=== PATIENT | female | born 1935 | race African-American/Black ===

== ENCOUNTER 2019-05-21 20:05 | Emergency (ER) | payer MEDICARE ==
[~2019-05-21] VITALS: Ht 165.1 cm; Wt 59.0 kg
[~2019-05-21 20:05] MED LIST: CARV3.1240 PO; CHOL20009 PO; CLOP75TA28 PO; DONE10TA17 PO; ESCI10TA; LEVO50TA7; MEMA10TA; NITROGLYCERIN; OMEPRAZOLE CAP 40MG; OXYBUTYNIN TAB 5MG; SIMV-8; TRAZ50TA2
[2019-05-21 21:10] LABS: Basophils # (auto) 0.1 uL; Basophils % (auto) 1.1 % (0.0-2.0); Eosinophils # (auto) 0.1 uL; Eosinophils % (auto) 2.5 % (0.0-7.0); Hematocrit 40.6 % (36.0-46.0); Hemoglobin 13.6 g/dL (12.2-16.2); Lymphocytes # (auto) 1.5 uL; Lymphocytes % (auto) 26.7 % (10.0-50.0); Mean Corpuscular Hemoglobin 32.3 pg (28.0-32.0); Mean Corpuscular Hgb Conc. 33.5 g/dL (32.0-36.0); Mean Corpuscular Volume 96.3 fL (80.0-100.0); Monocytes # (auto) 0.4 uL; Monocytes % (auto) 7.6 % (0.0-12.0); Neutrophils # (auto) 3.5 uL; Neutrophils % (auto) 62.1 % (37.0-80.0); Nucleated Red Blood Cells % 0.1 %; Platelet Count (auto) 197 10^3/uL (140-450); Red Blood Cells 4.21 10^6/uL (4.0-5.20); White Blood Cell 5.6 10^3/uL (4.4-10.8)
[2019-05-21 21:47] LABS: BUN/Creatinine Ratio 10.8; Calcium 8.3 mg/dL (8.5-10.1)
[2019-05-21 21:48] LABS: Albumin 3.3 g/dL (3.4-5.0); Bilirubin, Total 0.3 mg/dL (0.2-1.0); Total Protein 7.3 g/dL (6.4-8.2)
[2019-05-22 00:48] LABS: Urine Bacteria FEW /hpf (None Seen); Urine Blood Negative /uL (Negative); Urine Specific Gravity 1.003 (1.001-1.035); Urine WBC 29 /hpf (0 - 5)
[2019-05-22] MEDS ORDERED: ONDANSETRON HCL 4 MG/2 ML VIAL IV ONE (01:30)
[2019-05-22] MEDS ORDERED: MORPHINE SULF INJ 2 MG/ML SYRINGE 1ML IV ONE (01:30)
[2019-05-22 02:00] VITALS: BP 139/79
== END 2019-05-22 02:44 | disposition left against medical advice (07) ==
LOC: ER 20:08
DX: M25.562 Pain in left knee (principal); Z53.21 Procedure and treatment not carried out due to patient leaving prior to being seen by health care provider
CPT/HCPCS: 36415; 73562; 80053; 81001; 85025; 93005; 93971; 99281; J2270; J2405

== ENCOUNTER 2020-07-04 21:13 | Emergency (ER) | payer MEDICARE, MEDICAID ==
[~2020-07-04] VITALS: Ht 162.6 cm; Wt 49.9 kg
[2020-07-04 22:16] LABS: Basophils # (auto) 0 10 ^3/uL (0-0.2); Basophils % (auto) 0.5 % (0.0-2.0); Eosinophils # (auto) 0.1 10 ^3/uL (0-0.8); Hematocrit 40.9 % (36.0-46.0); Hemoglobin 13.8 g/dL (12.2-16.2); Lymphocytes # (auto) 1.7 10 ^3/uL (0.4-5.4); Lymphocytes % (auto) 28.3 % (10.0-50.0); Mean Corpuscular Hemoglobin 32.7 pg (28.0-32.0); Mean Corpuscular Hgb Conc. 33.8 g/dL (32.0-36.0); Mean Corpuscular Volume 96.9 fL (80.0-100.0); Monocytes # (auto) 0.5 10 ^3/uL (0-1.3); Monocytes % (auto) 8.9 % (0.0-12.0); Neutrophils # (auto) 3.7 10 ^3/uL (1.6-8.6); Neutrophils % (auto) 60.3 % (37.0-80.0); Nucleated Red Blood Cells % 0.1 %; Platelet Count (auto) 157 10^3/uL (140-450); Red Blood Cells 4.22 10^6/uL (4.0-5.20); Red Cell Distribution Width 14.4 % (11.8-14.3); White Blood Cell 6.1 10^3/uL (4.4-10.8)
[2020-07-04 22:33] LABS: Albumin 3.4 g/dL (3.4-5.0); Anion Gap 8 (5-15); Blood Urea Nitrogen 8 mg/dL (7-18); Calcium 8.5 mg/dL (8.5-10.1); Carbon Dioxide 26 mmol/L (21-32); Chloride 100 mmol/L (98-107); Glucose 81 mg/dL (74-106); Sodium 134 mmol/L (136-145)
[2020-07-04 22:35] LABS: Alanine Aminotransferase 27 U/L (13-56); Aspartate Aminotransferase 22 U/L (15-37); BUN/Creatinine Ratio 9.8; GFR African American 85 mL/min; GFR Non-African American 71 mL/min
[2020-07-04 22:39] LABS: Alkaline Phosphatase 57 U/L (45-117); Bilirubin, Total 0.6 mg/dL (0.2-1.0); Total Protein 6.6 g/dL (6.4-8.2)
[2020-07-04 22:46] LABS: Urine Bacteria FEW /hpf (None Seen); Urine Blood Negative /uL (Negative); Urine Specific Gravity 1.004 (1.001-1.035); Urine WBC 14 /hpf (0 - 5)
[2020-07-04] MEDS ORDERED: cefTRIAXone 1GM/50ML D5W 50 ML IV ONE (23:45)
[2020-07-04] MEDS ORDERED: MORPHINE SULF INJ 2 MG/ML SYRINGE 1ML IV ONE (23:45)
[2020-07-04] MEDS ORDERED: ONDANSETRON HCL 4 MG/2 ML VIAL IV ONE (23:45)
[2020-07-05] MEDS ORDERED: cefTRIAXone SOD 1,000 MG VL IM ONE (01:15)
[2020-07-05] MEDS ORDERED: HYDROcodone-ACET 5/325MG TAB PO ONE (01:15)
[2020-07-05] MEDS ORDERED: LIDOCAINE 2% (LOCAL ANESTH.) PF 5ml SDV IJ ONE (01:15)
[2020-07-05 01:26] VITALS: BP 163/73
== END 2020-07-05 03:34 | disposition home or self-care (01) ==
LOC: EDBD 21:13 → ER 21:15
DX: N39.0 Urinary tract infection, site not specified (principal); R53.1 Weakness; R41.82 Altered mental status, unspecified; F03.90 Unspecified dementia, unspecified severity, without behavioral disturbance, psychotic disturbance, mood disturbance, and anxiety; E86.0 Dehydration; I11.0 Hypertensive heart disease with heart failure; I50.9 Heart failure, unspecified; F32.9 Major depressive disorder, single episode, unspecified; E78.5 Hyperlipidemia, unspecified; I25.2 Old myocardial infarction; Z85.3 Personal history of malignant neoplasm of breast; Z85.118 Personal history of other malignant neoplasm of bronchus and lung; Z79.899 Other long term (current) drug therapy; Z86.73 Personal history of transient ischemic attack (TIA), and cerebral infarction without residual deficits; Z90.89 Acquired absence of other organs; Z95.0 Presence of cardiac pacemaker; Z98.890 Other specified postprocedural states
CPT/HCPCS: 36415; 70450; 80053; 80320; 81001; 84484; 85025; 93005; 96372; 99285; J0696; J2001; J2270; J2405

== ENCOUNTER 2020-10-05 18:53 | Inpatient (IN) | payer MEDICARE, MEDICAID ==
[~2020-10-05] VITALS: Ht 160 cm; Wt 63.1 kg
[~2020-10-05 18:53] MED LIST changes: -DONE10TA17 PO; +DONE10TA5 PO
[2020-10-05] MEDS ORDERED: HYDROcodone-ACET 5/325MG TAB PO ONE (20:00)
[2020-10-05] MEDS ORDERED: HYDROcodone-ACET 5/325MG TAB PO PRN (21:15)
[2020-10-05] MEDS ORDERED: ACETAMINOPHEN 325 MG TAB PO ONE (21:15)
[2020-10-05] MEDS ORDERED: MORPHINE SULFATE 4 MG/ML SYR/VIAL IV PRN ×2 (21:15→21:30)
[2020-10-05] MEDS ORDERED: CLOP75TA70 PO (22:30)
[2020-10-05 23:48] LABS: Basophils # (auto) 0.1 10 ^3/uL (0-0.2); Basophils % (auto) 0.6 % (0.0-2.0); Eosinophils # (auto) 0 10 ^3/uL (0-0.8); Eosinophils % (auto) 0.1 % (0.0-7.0); Hematocrit 40.6 % (36.0-46.0); Hemoglobin 14.1 g/dL (12.2-16.2); Lymphocytes # (auto) 0.8 10 ^3/uL (0.4-5.4); Lymphocytes % (auto) 9.2 % (10.0-50.0); Mean Corpuscular Hemoglobin 33.9 pg (28.0-32.0); Mean Corpuscular Hgb Conc. 34.7 g/dL (32.0-36.0); Mean Corpuscular Volume 97.9 fL (80.0-100.0); Monocytes # (auto) 0.3 10 ^3/uL (0-1.3); Monocytes % (auto) 3.3 % (0.0-12.0); Neutrophils # (auto) 7.5 10 ^3/uL (1.6-8.6); Neutrophils % (auto) 86.8 % (37.0-80.0); Nucleated Red Blood Cells % 0.1 %; Platelet Count (auto) 159 10^3/uL (140-450); Red Blood Cells 4.15 10^6/uL (4.0-5.20); White Blood Cell 8.7 10^3/uL (4.4-10.8)
[2020-10-06] MEDS ORDERED: ONDANSETRON HCL 4 MG/2 ML VIAL IV ONE
[2020-10-06 00:01] LABS: Urine Bacteria FEW /hpf (None Seen); Urine Blood Negative /uL (Negative); Urine Specific Gravity 1.012 (1.001-1.035); Urine WBC 4 /hpf (0 - 5)
[2020-10-06 00:01] LABS: INR 1.08 (0.9-1.15); Partial Thromboplastin Time 28.2 sec (23.0-31.2)
[2020-10-06 00:06] LABS: BUN/Creatinine Ratio 16.4; Calcium 8.3 mg/dL (8.5-10.1)
[2020-10-06] MEDS ORDERED: NITROGLYCERIN 0.4 MG SL TAB SL PRN (00:30)
[2020-10-06] MEDS ORDERED: MORPHINE SULF INJ 2 MG/ML SYRINGE 1ML IV PRN (00:30)
[2020-10-06] MEDS ORDERED: ACETAMINOPHEN 325 MG TAB PO PRN (00:30)
[2020-10-06] MEDS ORDERED: DOCUSATE SOD 100 MG CAP PO PRN (00:30)
[2020-10-06] MEDS: D5W/SOD CHL 0.45% 1,000 ML IV SCH ×2 (00:55→13:44)
[2020-10-06] MEDS: ONDANSETRON HCL 4 MG/2 ML VIAL IV PRN (05:15)
[2020-10-06] MEDS: MORPHINE SULFATE 4 MG/ML SYR/VIAL IV PRN (05:16)
[2020-10-06] MEDS: LEVOTHYROXINE SODIUM 50 MCG TAB PO SCH (06:31)
[2020-10-06] MEDS: cefTRIAXone 1GM/50ML D5W 50 ML IV SCH (08:02)
[2020-10-06] MEDS: ZINC SULFATE 220mg CAP or TAB PO SCH (08:02)
[2020-10-06] MEDS: FAMOTIDINE (10MG/ML) 2ML VL IV SCH (08:02)
[2020-10-06] MEDS: MULTIPLE VITAMIN TAB PO SCH (08:02)
[2020-10-06] MEDS: ASCORBIC ACID 500 MG TAB PO SCH ×2 (08:03→21:33)
[2020-10-06] MEDS: MEMANTINE HCL 5 MG TAB PO SCH (08:03)
[2020-10-06 08:22] LABS: Basophils # (auto) 0 10 ^3/uL (0-0.2); Basophils % (auto) 0.5 % (0.0-2.0); Eosinophils # (auto) 0.2 10 ^3/uL (0-0.8); Eosinophils % (auto) 2.2 % (0.0-7.0); Hematocrit 38.9 % (36.0-46.0); Hemoglobin 13.3 g/dL (12.2-16.2); Lymphocytes # (auto) 1.2 10 ^3/uL (0.4-5.4); Lymphocytes % (auto) 16.5 % (10.0-50.0); Mean Corpuscular Hemoglobin 33.5 pg (28.0-32.0); Mean Corpuscular Hgb Conc. 34.2 g/dL (32.0-36.0); Mean Corpuscular Volume 97.7 fL (80.0-100.0); Monocytes # (auto) 0.4 10 ^3/uL (0-1.3); Monocytes % (auto) 5.7 % (0.0-12.0); Neutrophils # (auto) 5.4 10 ^3/uL (1.6-8.6); Neutrophils % (auto) 75.1 % (37.0-80.0); Nucleated Red Blood Cells % 0.1 %; Platelet Count (auto) 155 10^3/uL (140-450); Red Blood Cells 3.98 10^6/uL (4.0-5.20); Red Cell Distribution Width 13.8 % (11.8-14.3); White Blood Cell 7.1 10^3/uL (4.4-10.8)
[2020-10-06 08:45] LABS: Potassium 3.9 mmol/L (3.5-5.1)
[2020-10-06 08:55] LABS: Albumin 3.1 g/dL (3.4-5.0); BUN/Creatinine Ratio 15.6; Calcium 7.8 mg/dL (8.5-10.1); Total Protein 6.3 g/dL (6.4-8.2)
[2020-10-06] MEDS ORDERED: ENOXAPARIN SOD 40 MG/0.4 ML SYRINGE SC SCH (10:00)
[2020-10-07] MEDS: D5W/SOD CHL 0.45% 1,000 ML IV SCH (03:10)
[2020-10-07] MEDS: hydrALAZINE HCL 20 MG/ML VL IV PRN (04:04)
[2020-10-07] MEDS: LEVOTHYROXINE SODIUM 50 MCG TAB PO SCH (06:29)
[2020-10-07] MEDS ORDERED: ceFAZolin 1GM/50ML 50 ML IV ONE (07:15)
[2020-10-07] MEDS ORDERED: SUCCINYLCHOLINE CHLORIDE 20 MG/ML 10ML VIAL IV ONE (07:33)
[2020-10-07] MEDS ORDERED: fentaNYL CITRATE 100 MCG/2 ML VL ONE (07:34)
[2020-10-07] MEDS ORDERED: ROCURONIUM 10MG/ML 10ML VIAL IV ONE (07:34)
[2020-10-07] MEDS ORDERED: PROPOFOL 10 MG/ML 20 ML IV ONE (07:36)
[2020-10-07] MEDS ORDERED: BUPIVACAINE 0.25% INJ 50ML VIAL ONE (08:11)
[2020-10-07] MEDS: FAMOTIDINE (10MG/ML) 2ML VL IV SCH (10:03)
[2020-10-07] MEDS: cefTRIAXone 1GM/50ML D5W 50 ML IV SCH (10:04)
[2020-10-07] MEDS: ENOXAPARIN SOD 40 MG/0.4 ML SYRINGE SC SCH (10:13)
[2020-10-07] MEDS: LACTATED RINGER'S 1,000 ML IV SCH ×2 (13:08→18:45)
[2020-10-07 13:19] VITALS: BP 145/81
[2020-10-07 13:37] LABS: Basophils # (auto) 0.1 10 ^3/uL (0-0.2); Basophils % (auto) 0.5 % (0.0-2.0); Eosinophils # (auto) 0.1 10 ^3/uL (0-0.8); Eosinophils % (auto) 0.5 % (0.0-7.0); Hemoglobin 14.1 g/dL (12.2-16.2); Lymphocytes % (auto) 10.5 % (10.0-50.0); Mean Corpuscular Hemoglobin 33.6 pg (28.0-32.0); Mean Corpuscular Hgb Conc. 34.3 g/dL (32.0-36.0); Mean Corpuscular Volume 97.9 fL (80.0-100.0); Monocytes # (auto) 0.6 10 ^3/uL (0-1.3); Monocytes % (auto) 6.4 % (0.0-12.0); Neutrophils # (auto) 8.2 10 ^3/uL (1.6-8.6); Neutrophils % (auto) 82.1 % (37.0-80.0); Nucleated Red Blood Cells % 0.1 %; Platelet Count (auto) 139 10^3/uL (140-450); Red Blood Cells 4.19 10^6/uL (4.0-5.20); White Blood Cell 9.9 10^3/uL (4.4-10.8)
[2020-10-07] MEDS: ceFAZolin 1GM/50ML 50 ML IV SCH ×2 (13:51→20:30)
[2020-10-07 13:54] LABS: Albumin 2.9 g/dL (3.4-5.0); Calcium 7.6 mg/dL (8.5-10.1); Potassium 3.6 mmol/L (3.5-5.1)
[2020-10-07 13:57] LABS: BUN/Creatinine Ratio 11.7; Bilirubin, Total 0.5 mg/dL (0.2-1.0); Total Protein 6.6 g/dL (6.4-8.2)
[2020-10-07] MEDS: SODIUM CHLOR 0.9% PF (SALINE LOCK) 10ML VIAL/SYR IV SCH ×2 (14:00→22:56)
[2020-10-07 16:00] VITALS: BP 143/95
[2020-10-07] MEDS: ZINC SULFATE 220mg CAP or TAB PO SCH (17:27)
[2020-10-07] MEDS: ASCORBIC ACID 500 MG TAB PO SCH ×2 (17:27→22:57)
[2020-10-07] MEDS: MEMANTINE HCL 5 MG TAB PO SCH (17:27)
[2020-10-07] MEDS: MULTIPLE VITAMIN TAB PO SCH (17:27)
[2020-10-07] MEDS: Ensure HIGH Protein Chocolate 8oz Bottle PO SCH (18:00)
[2020-10-07] MEDS: MORPHINE SULFATE 4 MG/ML SYR/VIAL IV PRN (20:33)
[2020-10-07] MEDS: ONDANSETRON HCL 4 MG/2 ML VIAL IV PRN (20:34)
[2020-10-07 21:47] VITALS: BP 127/62
[2020-10-08] MEDS: LACTATED RINGER'S 1,000 ML IV SCH (03:21)
[2020-10-08 05:26] VITALS: BP 144/83
[2020-10-08 05:47] LABS: Basophils # (auto) 0 10 ^3/uL (0-0.2); Basophils % (auto) 0.5 % (0.0-2.0); Eosinophils # (auto) 0.1 10 ^3/uL (0-0.8); Eosinophils % (auto) 1.5 % (0.0-7.0); Hematocrit 36.9 % (36.0-46.0); Hemoglobin 12.6 g/dL (12.2-16.2); Lymphocytes # (auto) 1.4 10 ^3/uL (0.4-5.4); Lymphocytes % (auto) 19.7 % (10.0-50.0); Mean Corpuscular Hemoglobin 33.4 pg (28.0-32.0); Mean Corpuscular Hgb Conc. 34.1 g/dL (32.0-36.0); Mean Corpuscular Volume 97.8 fL (80.0-100.0); Monocytes # (auto) 0.6 10 ^3/uL (0-1.3); Monocytes % (auto) 7.7 % (0.0-12.0); Neutrophils # (auto) 5.1 10 ^3/uL (1.6-8.6); Neutrophils % (auto) 70.6 % (37.0-80.0); Platelet Count (auto) 131 10^3/uL (140-450); Red Blood Cells 3.78 10^6/uL (4.0-5.20); Red Cell Distribution Width 13.7 % (11.8-14.3); White Blood Cell 7.2 10^3/uL (4.4-10.8)
[2020-10-08] MEDS: SODIUM CHLOR 0.9% PF (SALINE LOCK) 10ML VIAL/SYR IV SCH ×3 (05:52→21:04)
[2020-10-08] MEDS: LEVOTHYROXINE SODIUM 50 MCG TAB PO SCH (05:53)
[2020-10-08] MEDS: MORPHINE SULFATE 4 MG/ML SYR/VIAL IV PRN (05:54)
[2020-10-08] MEDS: ONDANSETRON HCL 4 MG/2 ML VIAL IV PRN (05:55)
[2020-10-08 06:02] LABS: Potassium 3.6 mmol/L (3.5-5.1)
[2020-10-08 06:18] LABS: Albumin 2.5 g/dL (3.4-5.0); BUN/Creatinine Ratio 11.1; Bilirubin, Total 0.6 mg/dL (0.2-1.0); Calcium 7.8 mg/dL (8.5-10.1); Total Protein 5.8 g/dL (6.4-8.2)
[2020-10-08 08:00] VITALS: BP 148/84
[2020-10-08] MEDS: cefTRIAXone 1GM/50ML D5W 50 ML IV SCH (09:35)
[2020-10-08] MEDS: ENOXAPARIN SOD 40 MG/0.4 ML SYRINGE SC SCH (09:36)
[2020-10-08] MEDS: FAMOTIDINE (10MG/ML) 2ML VL IV SCH (09:36)
[2020-10-08] MEDS: ASCORBIC ACID 500 MG TAB PO SCH ×2 (09:37→21:04)
[2020-10-08] MEDS: MULTIPLE VITAMIN TAB PO SCH (09:37)
[2020-10-08] MEDS: ZINC SULFATE 220mg CAP or TAB PO SCH (09:37)
[2020-10-08] MEDS: MEMANTINE HCL 5 MG TAB PO SCH (09:37)
[2020-10-08] MEDS: HYDROcodone-ACET 5/325MG TAB PO PRN ×2 (09:38→15:31)
[2020-10-08] MEDS: Ensure HIGH Protein Chocolate 8oz Bottle PO SCH ×3 (09:50→18:43)
[2020-10-08] MEDS: D5W/SOD CHLO 0.9% 1,000 ML IV SCH ×2 (09:50→23:13)
[2020-10-08] MEDS ORDERED: ENOXAPARIN SOD 40 MG/0.4 ML SYRINGE SC SCH (10:00)
[2020-10-08 16:00] VITALS: BP 131/67
[2020-10-08 22:00] VITALS: BP 159/80
[2020-10-08] MEDS: hydrALAZINE HCL 20 MG/ML VL IV PRN (23:14)
[2020-10-09] MEDS: MORPHINE SULFATE 4 MG/ML SYR/VIAL IV PRN ×2 (04:50→14:06)
[2020-10-09 05:00] VITALS: BP 146/88
[2020-10-09] MEDS: SODIUM CHLOR 0.9% PF (SALINE LOCK) 10ML VIAL/SYR IV SCH ×3 (05:49→22:15)
[2020-10-09] MEDS: LEVOTHYROXINE SODIUM 50 MCG TAB PO SCH (06:11)
[2020-10-09 06:12] LABS: Hematocrit 36.1 % (36.0-46.0); Hemoglobin 12.8 g/dL (12.2-16.2)
[2020-10-09 06:33] LABS: Calcium 7.8 mg/dL (8.5-10.1); Potassium 3.6 mmol/L (3.5-5.1)
[2020-10-09 06:35] LABS: BUN/Creatinine Ratio 18.5
[2020-10-09 08:00] VITALS: BP 147/80
[2020-10-09] MEDS: FAMOTIDINE (10MG/ML) 2ML VL IV SCH (09:25)
[2020-10-09] MEDS: ENOXAPARIN SOD 40 MG/0.4 ML SYRINGE SC SCH (09:25)
[2020-10-09] MEDS: ASCORBIC ACID 500 MG TAB PO SCH ×2 (09:26→22:15)
[2020-10-09] MEDS: cefTRIAXone 1GM/50ML D5W 50 ML IV SCH (09:26)
[2020-10-09] MEDS: ZINC SULFATE 220mg CAP or TAB PO SCH (09:26)
[2020-10-09] MEDS: MULTIPLE VITAMIN TAB PO SCH (09:26)
[2020-10-09] MEDS: MEMANTINE HCL 5 MG TAB PO SCH (09:26)
[2020-10-09] MEDS: Ensure HIGH Protein Chocolate 8oz Bottle PO SCH ×3 (09:26→18:49)
[2020-10-09] MEDS: D5W/SOD CHLO 0.9% 1,000 ML IV SCH (14:07)
[2020-10-09 22:00] VITALS: BP 178/99
[2020-10-09] MEDS: hydrALAZINE HCL 20 MG/ML VL IV PRN (22:15)
[2020-10-10] MEDS: D5W/SOD CHLO 0.9% 1,000 ML IV SCH ×2 (01:30→05:46)
[2020-10-10 05:00] VITALS: BP 158/90
[2020-10-10] MEDS: SODIUM CHLOR 0.9% PF (SALINE LOCK) 10ML VIAL/SYR IV SCH ×3 (05:37→21:20)
[2020-10-10] MEDS: hydrALAZINE HCL 20 MG/ML VL IV PRN (05:38)
[2020-10-10] MEDS: LEVOTHYROXINE SODIUM 50 MCG TAB PO SCH (06:01)
[2020-10-10 08:34] LABS: Basophils # (auto) 0 10 ^3/uL (0-0.2); Basophils % (auto) 0.6 % (0.0-2.0); Eosinophils # (auto) 0.1 10 ^3/uL (0-0.8); Eosinophils % (auto) 0.7 % (0.0-7.0); Hematocrit 38.1 % (36.0-46.0); Lymphocytes # (auto) 1.1 10 ^3/uL (0.4-5.4); Lymphocytes % (auto) 15.5 % (10.0-50.0); Mean Corpuscular Hgb Conc. 34.1 g/dL (32.0-36.0); Mean Corpuscular Volume 96.7 fL (80.0-100.0); Monocytes # (auto) 0.5 10 ^3/uL (0-1.3); Monocytes % (auto) 7.3 % (0.0-12.0); Neutrophils # (auto) 5.6 10 ^3/uL (1.6-8.6); Neutrophils % (auto) 75.9 % (37.0-80.0); Platelet Count (auto) 144 10^3/uL (140-450); Red Blood Cells 3.93 10^6/uL (4.0-5.20); Red Cell Distribution Width 13.9 % (11.8-14.3); White Blood Cell 7.4 10^3/uL (4.4-10.8)
[2020-10-10] MEDS: Ensure HIGH Protein Chocolate 8oz Bottle PO SCH ×3 (08:34→18:04)
[2020-10-10 08:48] LABS: BUN/Creatinine Ratio 12.3; Calcium 7.8 mg/dL (8.5-10.1); Potassium 3.5 mmol/L (3.5-5.1)
[2020-10-10 09:00] VITALS: BP 112/56
[2020-10-10] MEDS: cefTRIAXone 1GM/50ML D5W 50 ML IV SCH (09:13)
[2020-10-10] MEDS: MULTIPLE VITAMIN TAB PO SCH (09:14)
[2020-10-10] MEDS: ZINC SULFATE 220mg CAP or TAB PO SCH (09:14)
[2020-10-10] MEDS: MEMANTINE HCL 5 MG TAB PO SCH (09:14)
[2020-10-10] MEDS: FAMOTIDINE (10MG/ML) 2ML VL IV SCH (09:14)
[2020-10-10] MEDS: ASCORBIC ACID 500 MG TAB PO SCH ×2 (09:14→21:20)
[2020-10-10] MEDS: ENOXAPARIN SOD 40 MG/0.4 ML SYRINGE SC SCH (09:15)
[2020-10-10 16:00] VITALS: BP 103/71
[2020-10-10] MEDS ORDERED: METOPROLOL TARTRATE 1MG/1ML-5ML VIAL IV ONE (16:00)
[2020-10-10 22:00] VITALS: BP 125/73
[2020-10-11] MEDS: D5W/SOD CHLO 0.9% 1,000 ML IV SCH (04:10)
[2020-10-11 05:23] VITALS: BP 77/73
[2020-10-11] MEDS: LEVOTHYROXINE SODIUM 50 MCG TAB PO SCH (06:02)
[2020-10-11] MEDS: SODIUM CHLOR 0.9% PF (SALINE LOCK) 10ML VIAL/SYR IV SCH ×2 (06:02→14:26)
[2020-10-11 08:00] VITALS: BP 158/80
[2020-10-11] MEDS: cefTRIAXone 1GM/50ML D5W 50 ML IV SCH (08:38)
[2020-10-11] MEDS: FAMOTIDINE (10MG/ML) 2ML VL IV SCH (08:39)
[2020-10-11] MEDS: hydrALAZINE HCL 20 MG/ML VL IV PRN (08:39)
[2020-10-11] MEDS: ENOXAPARIN SOD 40 MG/0.4 ML SYRINGE SC SCH (08:40)
[2020-10-11] MEDS: MEMANTINE HCL 5 MG TAB PO SCH (08:40)
[2020-10-11] MEDS: ZINC SULFATE 220mg CAP or TAB PO SCH (08:40)
[2020-10-11] MEDS: ASCORBIC ACID 500 MG TAB PO SCH ×2 (08:41→21:17)
[2020-10-11] MEDS: MULTIPLE VITAMIN TAB PO SCH (08:41)
[2020-10-11] MEDS: Ensure HIGH Protein Chocolate 8oz Bottle PO SCH ×3 (09:00→18:03)
[2020-10-11 16:00] VITALS: BP 138/80
[2020-10-11 22:00] VITALS: BP 146/93
[2020-10-11] MEDS: HYDROcodone-ACET 5/325MG TAB PO PRN (23:12)
[2020-10-12] MEDS: SODIUM CHLOR 0.9% PF (SALINE LOCK) 10ML VIAL/SYR IV SCH ×3 (00:09→14:00)
[2020-10-12] MEDS: D5W/SOD CHLO 0.9% 1,000 ML IV SCH ×2 (00:15→07:17)
[2020-10-12 05:00] VITALS: BP 160/96
[2020-10-12] MEDS: LEVOTHYROXINE SODIUM 50 MCG TAB PO SCH (07:16)
[2020-10-12 08:00] VITALS: BP 150/84
[2020-10-12] MEDS: Ensure HIGH Protein Chocolate 8oz Bottle PO SCH ×3 (08:00→18:00)
[2020-10-12] MEDS: FAMOTIDINE (10MG/ML) 2ML VL IV SCH (09:30)
[2020-10-12] MEDS: MULTIPLE VITAMIN TAB PO SCH (09:30)
[2020-10-12] MEDS: MEMANTINE HCL 5 MG TAB PO SCH (09:30)
[2020-10-12] MEDS: ENOXAPARIN SOD 40 MG/0.4 ML SYRINGE SC SCH (09:30)
[2020-10-12] MEDS: cefTRIAXone 1GM/50ML D5W 50 ML IV SCH (09:30)
[2020-10-12] MEDS: ZINC SULFATE 220mg CAP or TAB PO SCH (09:30)
[2020-10-12] MEDS: ASCORBIC ACID 500 MG TAB PO SCH (09:30)
[2020-10-12 16:00] VITALS: BP 155/82
== END 2020-10-12 20:50 | disposition home health service (06) | DRG 481 ==
LOC: ER 18:53 → EDBD 18:53 → TELE 10-06 00:26 → TELE-CENTR 10-07 12:42
PROVIDERS: ADMIT Nurse Practitioner Family; ATTEND Family Medicine
PROC: 0QS734Z Reposition Left Upper Femur with Internal Fixation Device, Percutaneous Approach (ICD-10-PCS; principal; 2020-10-07 07:31)
DX: S72.012A Unspecified intracapsular fracture of left femur, initial encounter for closed fracture (principal); E44.0 Moderate protein-calorie malnutrition; N39.0 Urinary tract infection, site not specified; E87.1 Hypo-osmolality and hyponatremia; F03.90 Unspecified dementia, unspecified severity, without behavioral disturbance, psychotic disturbance, mood disturbance, and anxiety; E78.5 Hyperlipidemia, unspecified; M19.90 Unspecified osteoarthritis, unspecified site; E89.0 Postprocedural hypothyroidism; I44.7 Left bundle-branch block, unspecified; I25.10 Atherosclerotic heart disease of native coronary artery without angina pectoris; I11.0 Hypertensive heart disease with heart failure; Z20.822 Contact with and (suspected) exposure to COVID-19; W01.0XXA Fall on same level from slipping, tripping and stumbling without subsequent striking against object, initial encounter; Y92.89 Other specified places as the place of occurrence of the external cause; Y93.89 Activity, other specified; Z68.24 Body mass index [BMI] 24.0-24.9, adult; Y99.8 Other external cause status; Z86.73 Personal history of transient ischemic attack (TIA), and cerebral infarction without residual deficits; Z95.810 Presence of automatic (implantable) cardiac defibrillator
CPT/HCPCS: 36415; 51702; 70450; 71045; 72170; 72192; 73502; 73560; 76000; 80048; 80053; 81001; 84443; 85014; 85018; 85025; 85610; 85730; 86850; 86900; 86901; 87086; 87426; 93005; 93306; A4565; G0378; J0330; J0690; J0696; J2405; J2704; J3490; J7042

== ENCOUNTER 2021-03-10 08:21 | Inpatient (IN) | payer MEDICARE, MEDICAID ==
[~2021-03-10] VITALS: Ht 165.1 cm; Wt 55.5 kg
[~2021-03-10 08:21] MED LIST changes: +CLOP75TA70 PO
[2021-03-10] MEDS ORDERED: SODIUM CHLORIDE 0.9% 500 ML IVB ONE (09:45)
[2021-03-10] MEDS ORDERED: SODIUM CHLORIDE 0.9% 1,000 ML IV ONE ×2 (09:45→10:45)
[2021-03-10] MEDS ORDERED: ONDANSETRON HCL 4 MG/2 ML VIAL IV ONE (10:45)
[2021-03-10] MEDS ORDERED: MORPHINE SULFATE 4 MG/ML SYR/VIAL IV ONE (10:45)
[2021-03-10 11:30] LABS: Basophils # (auto) 0 10 ^3/uL (0-0.2); Basophils % (auto) 0.5 % (0.0-2.0); Eosinophils # (auto) 0 10 ^3/uL (0-0.8); Eosinophils % (auto) 0.1 % (0.0-7.0); Hematocrit 39.5 % (36.0-46.0); Hemoglobin 13.5 g/dL (12.2-16.2); Lymphocytes # (auto) 0.9 10 ^3/uL (0.4-5.4); Lymphocytes % (auto) 12.1 % (10.0-50.0); Mean Corpuscular Hemoglobin 31.9 pg (28.0-32.0); Mean Corpuscular Hgb Conc. 34.2 g/dL (32.0-36.0); Mean Corpuscular Volume 93.3 fL (80.0-100.0); Monocytes # (auto) 0.3 10 ^3/uL (0-1.3); Monocytes % (auto) 3.9 % (0.0-12.0); Neutrophils % (auto) 83.4 % (37.0-80.0); Red Blood Cells 4.23 10^6/uL (4.0-5.20); Red Cell Distribution Width 14.3 % (11.8-14.3); White Blood Cell 7.2 10^3/uL (4.4-10.8)
[2021-03-10 11:46] LABS: Albumin 3.4 g/dL (3.4-5.0); Anion Gap 5 (5-15); Blood Urea Nitrogen 12 mg/dL (7-18); Calcium 8.5 mg/dL (8.5-10.1); Carbon Dioxide 26 mmol/L (21-32); Chloride 108 mmol/L (98-107); Glucose 100 mg/dL (74-106); Lipase 129 U/L (73-393); Magnesium 2.1 mg/dL (1.6-2.6); Potassium 4.2 mmol/L (3.5-5.1); Sodium 139 mmol/L (136-145)
[2021-03-10 11:53] LABS: Alanine Aminotransferase 20 U/L (13-56); Alkaline Phosphatase 58 U/L (45-117); Aspartate Aminotransferase 18 U/L (15-37); BUN/Creatinine Ratio 15.6; Bilirubin, Total 0.5 mg/dL (0.2-1.0); GFR African American 92 mL/min; GFR Non-African American 76 mL/min; Total Protein 6.8 g/dL (6.4-8.2)
[2021-03-10 12:52] LABS: Urine Bacteria FEW /hpf (None Seen); Urine Blood Negative /uL (Negative); Urine Specific Gravity 1.019 (1.001-1.035); Urine WBC 5 /hpf (0 - 5)
[2021-03-10] MEDS ORDERED: GASTROGRAFIN 120 ML SOL ONE (13:38)
[2021-03-10] MEDS ORDERED: ACETAMINOPHEN 500 MG TAB PO PRN (15:30)
[2021-03-10] MEDS ORDERED: MORPHINE SULFATE INJECTION 2 MG/ML SYRG IV PRN (15:30)
[2021-03-10] MEDS ORDERED: cefTRIAXone 1GM/50ML D5W 50 ML IV ONE (15:30)
[2021-03-10] MEDS ORDERED: NITROGLYCERIN 0.4 MG SL TAB SL PRN (15:30)
[2021-03-10] MEDS ORDERED: ONDANSETRON HCL 4 MG/2 ML VIAL IV PRN (15:30)
[2021-03-10] MEDS: SODIUM CHLORIDE 0.9% 1,000 ML IV SCH (16:16)
[2021-03-10] MEDS: FAMOTIDINE (10MG/ML) 2ML VL IV SCH (16:44)
[2021-03-10 22:00] VITALS: BP 155/79
[2021-03-11] MEDS: SODIUM CHLORIDE 0.9% 1,000 ML IV SCH ×3 (01:30→23:44)
[2021-03-11 05:00] VITALS: BP 134/74
[2021-03-11 08:51] VITALS: BP 151/75
[2021-03-11] MEDS: FAMOTIDINE (10MG/ML) 2ML VL IV SCH (08:58)
[2021-03-11] MEDS: ENOXAPARIN SOD 40 MG/0.4 ML SYRINGE SC SCH (08:58)
[2021-03-11] MEDS: cefTRIAXone 1GM/50ML D5W 50 ML IV SCH (08:58)
[2021-03-11 13:05] VITALS: BP 165/76
[2021-03-11 16:50] VITALS: BP 143/84
[2021-03-11 22:00] VITALS: BP 127/67
[2021-03-12 05:00] VITALS: BP 141/92
[2021-03-12 09:00] VITALS: BP 150/73
[2021-03-12] MEDS: FAMOTIDINE (10MG/ML) 2ML VL IV SCH (09:05)
[2021-03-12] MEDS: ENOXAPARIN SOD 40 MG/0.4 ML SYRINGE SC SCH (09:05)
[2021-03-12] MEDS: cefTRIAXone 1GM/50ML D5W 50 ML IV SCH (09:05)
[2021-03-12] MEDS: SODIUM CHLORIDE 0.9% 1,000 ML IV SCH ×2 (10:30→18:10)
[2021-03-12] MEDS: hydrALAZINE HCL 20 MG/ML VL IV PRN (12:56)
[2021-03-12 13:00] VITALS: BP 162/74
[2021-03-12 17:30] VITALS: BP 141/75
[2021-03-12 20:00] VITALS: BP 148/73
[2021-03-12 22:00] VITALS: BP 148/73
[2021-03-13] MEDS: SODIUM CHLORIDE 0.9% 1,000 ML IV SCH ×3 (04:30→23:57)
[2021-03-13 05:00] VITALS: BP 164/88
[2021-03-13] MEDS: hydrALAZINE HCL 20 MG/ML VL IV PRN ×2 (05:17→09:15)
[2021-03-13 09:00] VITALS: BP 161/89
[2021-03-13] MEDS: ENOXAPARIN SOD 40 MG/0.4 ML SYRINGE SC SCH (09:14)
[2021-03-13] MEDS: FAMOTIDINE (10MG/ML) 2ML VL IV SCH (09:15)
[2021-03-13] MEDS: cefTRIAXone 1GM/50ML D5W 50 ML IV SCH (09:15)
[2021-03-13 13:00] VITALS: BP 145/85
[2021-03-13 17:00] VITALS: BP 149/85
[2021-03-13 20:00] VITALS: BP 145/88
[2021-03-13 22:00] VITALS: BP 145/91
[2021-03-14 05:12] VITALS: BP 146/85
[2021-03-14 08:47] VITALS: BP 163/80
[2021-03-14] MEDS: cefTRIAXone 1GM/50ML D5W 50 ML IV SCH (10:19)
[2021-03-14] MEDS: FAMOTIDINE (10MG/ML) 2ML VL IV SCH (10:20)
[2021-03-14] MEDS: SODIUM CHLORIDE 0.9% 1,000 ML IV SCH (10:20)
[2021-03-14] MEDS: ENOXAPARIN SOD 40 MG/0.4 ML SYRINGE SC SCH (10:20)
[2021-03-14] MEDS: hydrALAZINE HCL 20 MG/ML VL IV PRN (11:16)
[2021-03-14 13:00] VITALS: BP 138/69
[2021-03-14 17:00] VITALS: BP 133/73
== END 2021-03-14 17:46 | disposition home health service (06) | DRG 389 ==
LOC: EDBD 08:21 → ER 08:21 → TELE 15:16 → TELE-WESTW 20:01
PROVIDERS: ADMIT Internal Medicine; ATTEND Family Medicine
DX: K56.600 Partial intestinal obstruction, unspecified as to cause (principal); N39.0 Urinary tract infection, site not specified; E78.5 Hyperlipidemia, unspecified; G30.9 Alzheimer's disease, unspecified; I16.0 Hypertensive urgency; I11.0 Hypertensive heart disease with heart failure; F02.80 Dementia in other diseases classified elsewhere, unspecified severity, without behavioral disturbance, psychotic disturbance, mood disturbance, and anxiety; I50.9 Heart failure, unspecified; Z20.822 Contact with and (suspected) exposure to COVID-19; E78.00 Pure hypercholesterolemia, unspecified; E03.9 Hypothyroidism, unspecified; F32.9 Major depressive disorder, single episode, unspecified; Z90.710 Acquired absence of both cervix and uterus; I25.2 Old myocardial infarction; Z85.3 Personal history of malignant neoplasm of breast; Z86.73 Personal history of transient ischemic attack (TIA), and cerebral infarction without residual deficits; Z90.12 Acquired absence of left breast and nipple
CPT/HCPCS: 36415; 51702; 71045; 74176; 74250; 80053; 81001; 83690; 83735; 84443; 84484; 85025; 87086; 87426; 93005; 96361; 96365; 96366; 96375; G0378; J0696; J3490

== ENCOUNTER 2021-03-30 14:12 | Inpatient (IN) | payer MEDICARE, MEDICAID ==
[~2021-03-30] VITALS: Ht 165.1 cm; Wt 56.1 kg
[2021-03-30] MEDS ORDERED: SODIUM CHLORIDE 0.9% 500 ML IV ONE (14:30)
[2021-03-30 14:52] LABS: Basophils # (auto) 0.1 10 ^3/uL (0-0.2); Basophils % (auto) 1.2 % (0.0-2.0); Eosinophils # (auto) 0.1 10 ^3/uL (0-0.8); Eosinophils % (auto) 1.6 % (0.0-7.0); Hematocrit 36.8 % (36.0-46.0); Hemoglobin 12.7 g/dL (12.2-16.2); Lymphocytes # (auto) 1.3 10 ^3/uL (0.4-5.4); Mean Corpuscular Hemoglobin 32.9 pg (28.0-32.0); Mean Corpuscular Hgb Conc. 34.6 g/dL (32.0-36.0); Monocytes # (auto) 0.3 10 ^3/uL (0-1.3); Monocytes % (auto) 4.9 % (0.0-12.0); Neutrophils % (auto) 73.3 % (37.0-80.0); Red Blood Cells 3.87 10^6/uL (4.0-5.20); White Blood Cell 6.8 10^3/uL (4.4-10.8)
[2021-03-30 15:08] LABS: Alanine Aminotransferase 16 U/L (13-56); Albumin 3.2 g/dL (3.4-5.0); Anion Gap 6 (5-15); Aspartate Aminotransferase 18 U/L (15-37); BUN/Creatinine Ratio 10.9; Blood Urea Nitrogen 10 mg/dL (7-18); Calcium 8.3 mg/dL (8.5-10.1); Carbon Dioxide 26 mmol/L (21-32); Chloride 110 mmol/L (98-107); GFR African American 75 mL/min; GFR Non-African American 62 mL/min; Glucose 88 mg/dL (74-106); Sodium 142 mmol/L (136-145)
[2021-03-30 15:13] LABS: Alkaline Phosphatase 52 U/L (45-117); Bilirubin, Total 0.5 mg/dL (0.2-1.0); Total Protein 6.5 g/dL (6.4-8.2)
[2021-03-30] MEDS ORDERED: ACETAMINOPHEN 325 MG TAB PO PRN (22:30)
[2021-03-30] MEDS ORDERED: HYDROcodone-ACET 5/325MG TAB PO PRN (22:30)
[2021-03-30] MEDS ORDERED: MORPHINE SULF INJ 2 MG/ML SYRINGE 1ML IV PRN (22:30)
[2021-03-30] MEDS ORDERED: ONDANSETRON HCL 4 MG/2 ML VIAL IV PRN (22:30)
[2021-03-30] MEDS ORDERED: DOCUSATE SOD 100 MG CAP PO PRN (22:30)
[2021-03-30] MEDS ORDERED: NITROGLYCERIN 0.4 MG SL TAB SL PRN (22:30)
[2021-03-30] MEDS ORDERED: IOHEXOL 300 MG/ML 100ML BOTTLE IJ ONE (22:53)
[2021-03-31 01:00] VITALS: BP 161/79
[2021-03-31 05:00] VITALS: BP 130/70
[2021-03-31] MEDS: SODIUM CHLOR 0.9% PF (SALINE LOCK) 10ML VIAL/SYR IV SCH ×3 (06:00→21:35)
[2021-03-31 06:29] LABS: Basophils # (auto) 0.1 10 ^3/uL (0-0.2); Eosinophils # (auto) 0.1 10 ^3/uL (0-0.8); Eosinophils % (auto) 1.6 % (0.0-7.0); Hematocrit 37.6 % (36.0-46.0); Hemoglobin 13.1 g/dL (12.2-16.2); Lymphocytes # (auto) 2.2 10 ^3/uL (0.4-5.4); Lymphocytes % (auto) 33.9 % (10.0-50.0); Mean Corpuscular Hemoglobin 33.3 pg (28.0-32.0); Mean Corpuscular Hgb Conc. 34.9 g/dL (32.0-36.0); Mean Corpuscular Volume 95.5 fL (80.0-100.0); Monocytes # (auto) 0.5 10 ^3/uL (0-1.3); Monocytes % (auto) 8.1 % (0.0-12.0); Neutrophils # (auto) 3.5 10 ^3/uL (1.6-8.6); Neutrophils % (auto) 55.4 % (37.0-80.0); Nucleated Red Blood Cells % 0.1 %; Red Blood Cells 3.94 10^6/uL (4.0-5.20); Red Cell Distribution Width 15.3 % (11.8-14.3); White Blood Cell 6.4 10^3/uL (4.4-10.8)
[2021-03-31 06:53] LABS: Calcium 8.3 mg/dL (8.5-10.1); Potassium 3.7 mmol/L (3.5-5.1)
[2021-03-31 06:55] LABS: BUN/Creatinine Ratio 14.9
[2021-03-31 06:58] LABS: Bilirubin, Total 0.4 mg/dL (0.2-1.0); Total Protein 6.4 g/dL (6.4-8.2)
[2021-03-31 09:00] VITALS: BP 155/79
[2021-03-31] MEDS: ASCORBIC ACID 500 MG TAB PO SCH ×2 (10:18→21:35)
[2021-03-31] MEDS: ZINC SULFATE 220mg CAP or TAB PO SCH (10:18)
[2021-03-31] MEDS: ENOXAPARIN SOD 40 MG/0.4 ML SYRINGE SC SCH (10:18)
[2021-03-31] MEDS: MULTIPLE VITAMIN TAB PO SCH (10:18)
[2021-03-31] MEDS: FAMOTIDINE 20 MG TAB PO SCH (10:18)
[2021-03-31 13:00] VITALS: BP 142/63
[2021-03-31 17:00] VITALS: BP 148/76
[2021-03-31] MEDS: MUPIROCIN 2% OINT 15gm or 22gm EACHNOSTRI SCH (21:35)
[2021-03-31] MEDS: ATORVASTATIN 20 MG TAB PO SCH (21:35)
[2021-03-31 22:00] VITALS: BP 146/70
[2021-04-01 05:00] VITALS: BP 159/88
[2021-04-01] MEDS: SODIUM CHLOR 0.9% PF (SALINE LOCK) 10ML VIAL/SYR IV SCH ×3 (05:37→21:28)
[2021-04-01 06:57] LABS: Urine Bacteria MANY /hpf (None Seen); Urine Blood Negative /uL (Negative); Urine Budding Yeast OCCASIONAL /hpf (None Seen); Urine Specific Gravity 1.009 (1.001-1.035); Urine WBC 11 /hpf (0 - 5)
[2021-04-01 08:15] VITALS: BP 162/88
[2021-04-01 09:00] VITALS: BP 162/88
[2021-04-01] MEDS: FAMOTIDINE 20 MG TAB PO SCH (10:00)
[2021-04-01] MEDS: ZINC SULFATE 220mg CAP or TAB PO SCH (10:09)
[2021-04-01] MEDS: MUPIROCIN 2% OINT 15gm or 22gm EACHNOSTRI SCH ×2 (10:09→21:27)
[2021-04-01] MEDS: ASCORBIC ACID 500 MG TAB PO SCH ×2 (10:10→21:28)
[2021-04-01] MEDS: CLOPIDOGREL BISULFATE 75 MG TAB PO SCH (10:10)
[2021-04-01] MEDS: MULTIPLE VITAMIN TAB PO SCH (10:10)
[2021-04-01] MEDS: ENOXAPARIN SOD 40 MG/0.4 ML SYRINGE SC SCH (10:11)
[2021-04-01 13:00] VITALS: BP 168/90
[2021-04-01] MEDS: LABETALOL HCL 5 MG/ML 4ML SYRINGE IV PRN (17:42)
[2021-04-01] MEDS: ATORVASTATIN 20 MG TAB PO SCH (21:28)
[2021-04-01 22:00] VITALS: BP 151/86
[2021-04-01] MEDS ORDERED: MUPIROCIN 2% OINT 15gm or 22gm EACHNOSTRI SCH (22:00)
[2021-04-02 05:00] VITALS: BP 170/84
[2021-04-02] MEDS: SODIUM CHLOR 0.9% PF (SALINE LOCK) 10ML VIAL/SYR IV SCH ×2 (06:05→13:44)
[2021-04-02] MEDS: LABETALOL HCL 5 MG/ML 4ML SYRINGE IV PRN (07:04)
[2021-04-02 08:15] VITALS: BP 139/78
[2021-04-02 09:00] VITALS: BP 139/78
[2021-04-02] MEDS: ZINC SULFATE 220mg CAP or TAB PO SCH (09:45)
[2021-04-02] MEDS: MULTIPLE VITAMIN TAB PO SCH (09:45)
[2021-04-02] MEDS: MUPIROCIN 2% OINT 15gm or 22gm EACHNOSTRI SCH (09:45)
[2021-04-02] MEDS: FAMOTIDINE 20 MG TAB PO SCH (09:46)
[2021-04-02] MEDS: ASCORBIC ACID 500 MG TAB PO SCH (09:46)
[2021-04-02] MEDS: ENOXAPARIN SOD 40 MG/0.4 ML SYRINGE SC SCH (09:46)
[2021-04-02] MEDS: CLOPIDOGREL BISULFATE 75 MG TAB PO SCH (09:46)
[2021-04-02 11:57] VITALS: BP 139/78
[2021-04-02 13:00] VITALS: BP 132/88
[2021-04-02 17:00] VITALS: BP 146/94
[2021-04-02] MEDS ORDERED: MUPIROCIN 2% OINT 15gm or 22gm EACHNOSTRI SCH (22:00)
== END 2021-04-02 21:15 | disposition home or self-care (01) | DRG 71 ==
LOC: EDBD 14:12 → ER 14:12 → TELE 22:30 → TELE-WESTW 23:34
PROVIDERS: ADMIT Nurse Practitioner Family; ATTEND Family Medicine
DX: G93.41 Metabolic encephalopathy (principal); N39.0 Urinary tract infection, site not specified; E86.0 Dehydration; I95.9 Hypotension, unspecified; F02.80 Dementia in other diseases classified elsewhere, unspecified severity, without behavioral disturbance, psychotic disturbance, mood disturbance, and anxiety; Z20.822 Contact with and (suspected) exposure to COVID-19; I50.9 Heart failure, unspecified; G30.9 Alzheimer's disease, unspecified; R55 Syncope and collapse; I11.0 Hypertensive heart disease with heart failure; E03.9 Hypothyroidism, unspecified; E78.00 Pure hypercholesterolemia, unspecified; E78.5 Hyperlipidemia, unspecified; F17.200 Nicotine dependence, unspecified, uncomplicated; F32.9 Major depressive disorder, single episode, unspecified; I25.10 Atherosclerotic heart disease of native coronary artery without angina pectoris; I25.2 Old myocardial infarction; Z79.02 Long term (current) use of antithrombotics/antiplatelets; Z86.73 Personal history of transient ischemic attack (TIA), and cerebral infarction without residual deficits; Z79.899 Other long term (current) drug therapy; Z82.49 Family history of ischemic heart disease and other diseases of the circulatory system; Z83.3 Family history of diabetes mellitus; Z85.3 Personal history of malignant neoplasm of breast; Z90.12 Acquired absence of left breast and nipple; Z90.81 Acquired absence of spleen; Z95.0 Presence of cardiac pacemaker; Z90.49 Acquired absence of other specified parts of digestive tract
CPT/HCPCS: 36415; 70450; 71045; 74177; 80053; 81001; 84484; 85025; 85049; 87081; 87086; 87426; 93005; 95819; 97110; 97116; 97163; 97530; G0378; J3490

== ENCOUNTER 2022-01-20 12:42 | Emergency (ER) | payer MEDICARE, OTHER ==
[~2022-01-20] VITALS: Ht 157.5 cm; Wt 49.9 kg
[~2022-01-20 12:42] MED LIST changes: -NITROGLYCERIN; -OMEPRAZOLE CAP 40MG; -SIMV-8; -TRAZ50TA2
[2022-01-20] MEDS ORDERED: FLEET ENEMA(ADULT) 135 ML PR ONE (17:00)
[2022-01-20 18:32] LABS: Basophils # (auto) 0.1 10 ^3/uL (0-0.2); Basophils % (auto) 0.8 % (0.0-2.0); Eosinophils # (auto) 0 10 ^3/uL (0-0.8); Eosinophils % (auto) 0.4 % (0.0-7.0); Hematocrit 38.8 % (36.0-46.0); Hemoglobin 13.2 g/dL (12.2-16.2); Lymphocytes # (auto) 1.9 10 ^3/uL (0.4-5.4); Lymphocytes % (auto) 27.1 % (10.0-50.0); Mean Corpuscular Hemoglobin 32.5 pg (28.0-32.0); Mean Corpuscular Hgb Conc. 33.9 g/dL (32.0-36.0); Mean Corpuscular Volume 95.9 fL (80.0-100.0); Monocytes # (auto) 0.5 10 ^3/uL (0-1.3); Monocytes % (auto) 6.6 % (0.0-12.0); Neutrophils # (auto) 4.6 10 ^3/uL (1.6-8.6); Neutrophils % (auto) 65.1 % (37.0-80.0); Nucleated Red Blood Cells % 0.1 %; Red Blood Cells 4.05 10^6/uL (4.0-5.20); Red Cell Distribution Width 14.4 % (11.8-14.3)
[2022-01-20 18:50] LABS: Albumin 3.5 g/dL (3.4-5.0); BUN/Creatinine Ratio 10.9; Calcium 8.9 mg/dL (8.5-10.1); Magnesium 2.2 mg/dL (1.6-2.6); Potassium 4.5 mmol/L (3.5-5.1)
[2022-01-20 18:53] LABS: Bilirubin, Total 0.4 mg/dL (0.2-1.0); Total Protein 7.3 g/dL (6.4-8.2)
[2022-01-20] MEDS ORDERED: POLY33504 PO (19:32)
[2022-01-20 20:08] VITALS: BP 150/74
== END 2022-01-20 20:55 | disposition home or self-care (01) ==
LOC: ER 12:42 → EDBD 12:42 → ER 20:55
DX: K59.00 Constipation, unspecified (principal); I11.0 Hypertensive heart disease with heart failure; I50.9 Heart failure, unspecified; I25.2 Old myocardial infarction; E03.9 Hypothyroidism, unspecified; E78.5 Hyperlipidemia, unspecified; Z86.73 Personal history of transient ischemic attack (TIA), and cerebral infarction without residual deficits; Z90.49 Acquired absence of other specified parts of digestive tract; Z95.0 Presence of cardiac pacemaker; Z90.89 Acquired absence of other organs; Z79.01 Long term (current) use of anticoagulants; Z79.899 Other long term (current) drug therapy
CPT/HCPCS: 36415; 80053; 83605; 83735; 85025; 93005

== ENCOUNTER 2022-05-24 17:06 | Inpatient (IN) | payer MEDICARE, OTHER ==
[~2022-05-24] VITALS: Ht 154.9 cm; Wt 64.0 kg
[~2022-05-24 17:06] MED LIST changes: +POLY33504 PO
[2022-05-24 21:17] LABS: Basophils # (auto) 0 10 ^3/uL (0-0.2); Basophils % (auto) 0.4 % (0.0-2.0); Eosinophils # (auto) 0 10 ^3/uL (0-0.8); Eosinophils % (auto) 0.1 % (0.0-7.0); Hematocrit 43.9 % (36.0-46.0); Hemoglobin 14.2 g/dL (12.2-16.2); Lymphocytes # (auto) 1.1 10 ^3/uL (0.4-5.4); Lymphocytes % (auto) 15.1 % (10.0-50.0); Mean Corpuscular Hgb Conc. 32.4 g/dL (32.0-36.0); Mean Corpuscular Volume 95.8 fL (80.0-100.0); Monocytes # (auto) 0.2 10 ^3/uL (0-1.3); Monocytes % (auto) 3.5 % (0.0-12.0); Neutrophils # (auto) 5.7 10 ^3/uL (1.6-8.6); Neutrophils % (auto) 80.9 % (37.0-80.0); Nucleated Red Blood Cells % 0.1 %; Red Blood Cells 4.59 10^6/uL (4.0-5.20); Red Cell Distribution Width 14.3 % (11.8-14.3)
[2022-05-24 21:36] LABS: Albumin 3.7 g/dL (3.4-5.0); BUN/Creatinine Ratio 13.4; Calcium 9.1 mg/dL (8.5-10.1); Potassium 4.3 mmol/L (3.5-5.1)
[2022-05-24 21:39] LABS: Bilirubin, Total 0.6 mg/dL (0.2-1.0); Total Protein 7.6 g/dL (6.4-8.2)
[2022-05-24] MEDS ORDERED: MORPHINE SULFATE INJ 2 MG/ml SYRG IV ONE (23:45)
[2022-05-24] MEDS ORDERED: ONDANSETRON HCL 4 MG/2 ML VIAL IV ONE (23:45)
[2022-05-25] MEDS ORDERED: OMNIPAQUE ORAL SOLN 500ml 12mg/ml PO ONE ×2 (00:34→01:44)
[2022-05-25] MEDS ORDERED: IOHEXOL 300 MG/ML 100ML BOTTLE IJ ONE (01:47)
[2022-05-25] MEDS ORDERED: MORPHINE SULFATE INJ 2 MG/ml SYRG IV ONE ×2 (06:00→11:30)
[2022-05-25] MEDS ORDERED: ONDANSETRON HCL 4 MG/2 ML VIAL IV ONE ×2 (06:00→11:30)
[2022-05-25] MEDS ORDERED: MORPHINE SULFATE INJ 2 MG/ml SYRG IM ONE (11:30)
[2022-05-25] MEDS ORDERED: MORPHINE SULFATE INJ 2 MG/ml SYRG ONE (11:35)
[2022-05-25] MEDS ORDERED: HYDROcodone-ACET 5/325MG TAB PO PRN (14:00)
[2022-05-25] MEDS ORDERED: ACETAMINOPHEN 325 MG TAB PO PRN (14:00)
[2022-05-25] MEDS: SODIUM CHLORIDE 0.9% 1,000 ML IV SCH (14:26)
[2022-05-25 20:38] LABS: Urine Bacteria NONE SEEN /hpf (None Seen); Urine Blood 2+ /uL (Negative); Urine Mucus FEW (None Seen); Urine Specific Gravity 1.027 (1.001-1.035); Urine WBC 30 /hpf (0 - 5)
[2022-05-25] MEDS: MORPHINE SULFATE INJ 2 MG/ml SYRG IV PRN (21:12)
[2022-05-26] MEDS: hydrALAZINE HCL 20 MG/ML VL IV PRN ×3 (01:37→23:03)
[2022-05-26] MEDS: CARVEDILOL 3.125 MG TAB PO SCH ×3 (05:57→22:00)
[2022-05-26] MEDS: SODIUM CHLORIDE 0.9% 1,000 ML IV SCH ×2 (06:58→23:20)
[2022-05-26 07:43] LABS: Basophils # (auto) 0 10 ^3/uL (0-0.2); Basophils % (auto) 0.1 % (0.0-2.0); Eosinophils # (auto) 0 10 ^3/uL (0-0.8); Hematocrit 46.6 % (36.0-46.0); Hemoglobin 15.3 g/dL (12.2-16.2); Lymphocytes # (auto) 0.5 10 ^3/uL (0.4-5.4); Lymphocytes % (auto) 4.4 % (10.0-50.0); Mean Corpuscular Hemoglobin 30.8 pg (28.0-32.0); Mean Corpuscular Hgb Conc. 32.9 g/dL (32.0-36.0); Mean Corpuscular Volume 93.7 fL (80.0-100.0); Monocytes # (auto) 0.6 10 ^3/uL (0-1.3); Neutrophils # (auto) 11.2 10 ^3/uL (1.6-8.6); Neutrophils % (auto) 90.5 % (37.0-80.0); Nucleated Red Blood Cells % 0.1 %; Red Blood Cells 4.97 10^6/uL (4.0-5.20); Red Cell Distribution Width 14.6 % (11.8-14.3); White Blood Cell 12.4 10^3/uL (4.4-10.8)
[2022-05-26 08:04] LABS: Albumin 3.6 g/dL (3.4-5.0); BUN/Creatinine Ratio 17.6; Calcium 9.1 mg/dL (8.5-10.1); Potassium 3.5 mmol/L (3.5-5.1)
[2022-05-26 08:07] LABS: Bilirubin, Total 0.7 mg/dL (0.2-1.0); Total Protein 7.4 g/dL (6.4-8.2)
[2022-05-26] MEDS ORDERED: TRAZ-181 PO (13:02)
[2022-05-26 13:09] VITALS: BP 141/92
[2022-05-26 17:00] VITALS: BP 161/87
[2022-05-26] MEDS: MORPHINE SULFATE INJ 2 MG/ml SYRG IV PRN (17:54)
[2022-05-26 22:00] VITALS: BP 175/111
[2022-05-26] MEDS ORDERED: METOPROLOL TARTRATE 1MG/1ML-5ML VIAL IV PRN (22:15)
[2022-05-27] VITALS (8 sets, daily range): BP systolic 135–185; BP diastolic 71–112
[2022-05-27] MEDS: MORPHINE SULFATE INJ 2 MG/ml SYRG IV PRN ×5 (03:25→21:31)
[2022-05-27 06:35] LABS: BUN/Creatinine Ratio 28.6; Calcium 8.9 mg/dL (8.5-10.1); Potassium 3.2 mmol/L (3.5-5.1)
[2022-05-27 06:44] LABS: Basophils # (auto) 0 10 ^3/uL (0-0.2); Basophils % (auto) 0.1 % (0.0-2.0); Eosinophils # (auto) 0 10 ^3/uL (0-0.8); Hematocrit 44.4 % (36.0-46.0); Hemoglobin 14.9 g/dL (12.2-16.2); Lymphocytes # (auto) 0.6 10 ^3/uL (0.4-5.4); Mean Corpuscular Hemoglobin 31.4 pg (28.0-32.0); Mean Corpuscular Hgb Conc. 33.6 g/dL (32.0-36.0); Mean Corpuscular Volume 93.5 fL (80.0-100.0); Monocytes # (auto) 0.6 10 ^3/uL (0-1.3); Monocytes % (auto) 6.7 % (0.0-12.0); Neutrophils # (auto) 8.4 10 ^3/uL (1.6-8.6); Neutrophils % (auto) 87.2 % (37.0-80.0); Nucleated Red Blood Cells % 0.1 %; Red Blood Cells 4.75 10^6/uL (4.0-5.20); Red Cell Distribution Width 14.2 % (11.8-14.3); White Blood Cell 9.6 10^3/uL (4.4-10.8)
[2022-05-27] MEDS ORDERED: POTASSIUM CHLORIDE 60 MEQ, LIDOCAINE 1% (LOCAL ANESTH.) 6 ML in SODIUM CHL 0.9% 500 ML IV ONE (09:00)
[2022-05-27] MEDS: CARVEDILOL 3.125 MG TAB PO SCH (09:38)
[2022-05-27 09:40] LABS: Magnesium 2.1 mg/dL (1.6-2.6)
[2022-05-27] MEDS ORDERED: AMIODARONE HCL 150 MG in D5W 5% 100 ML IV ONE (10:15)
[2022-05-27] MEDS ORDERED: AMIODARONE 450mg/250ml AE 250 ML IV SCH (10:30)
[2022-05-27] MEDS: hydrALAZINE HCL 20 MG/ML VL IV PRN (12:22)
[2022-05-27] MEDS ORDERED: GASTROGRAFIN 120 ML SOL ONE (13:11)
[2022-05-27] MEDS: SODIUM CHLORIDE 0.9% 1,000 ML IV SCH (15:34)
[2022-05-27] MEDS ORDERED: FLEET ENEMA(ADULT) 135 ML PR ONE (16:00)
[2022-05-27] MEDS: AMIODARONE 450mg/250ml AE 250 ML IV SCH (16:56)
[2022-05-27] MEDS: LABETALOL HCL 5 MG/ML 4ML SYRINGE IV PRN ×2 (17:13→22:48)
[2022-05-28] MEDS: MORPHINE SULFATE INJ 2 MG/ml SYRG IV PRN ×6 (02:46→22:09)
[2022-05-28 05:00] VITALS: BP 173/85
[2022-05-28 05:50] LABS: Basophils # (auto) 0 10 ^3/uL (0-0.2); Basophils % (auto) 0.2 % (0.0-2.0); Eosinophils # (auto) 0 10 ^3/uL (0-0.8); Eosinophils % (auto) 0.1 % (0.0-7.0); Hematocrit 41.4 % (36.0-46.0); Hemoglobin 13.9 g/dL (12.2-16.2); Lymphocytes # (auto) 0.7 10 ^3/uL (0.4-5.4); Lymphocytes % (auto) 7.2 % (10.0-50.0); Mean Corpuscular Hemoglobin 31.4 pg (28.0-32.0); Mean Corpuscular Hgb Conc. 33.4 g/dL (32.0-36.0); Mean Corpuscular Volume 93.8 fL (80.0-100.0); Monocytes # (auto) 0.7 10 ^3/uL (0-1.3); Monocytes % (auto) 7.8 % (0.0-12.0); Neutrophils # (auto) 7.7 10 ^3/uL (1.6-8.6); Neutrophils % (auto) 84.7 % (37.0-80.0); Nucleated Red Blood Cells % 0.1 %; Red Blood Cells 4.42 10^6/uL (4.0-5.20); Red Cell Distribution Width 14.7 % (11.8-14.3); White Blood Cell 9.1 10^3/uL (4.4-10.8)
[2022-05-28] MEDS: LABETALOL HCL 5 MG/ML 4ML SYRINGE IV PRN (06:01)
[2022-05-28 06:03] LABS: Chloride 110 mmol/L (98-107); Potassium 3.6 mmol/L (3.5-5.1); Sodium 142 mmol/L (136-145)
[2022-05-28 06:07] LABS: Anion Gap 11 (5-15); BUN/Creatinine Ratio 24.6; Blood Urea Nitrogen 16 mg/dL (7-18); Calcium 8.6 mg/dL (8.5-10.1); Carbon Dioxide 21 mmol/L (21-32); GFR African American 111 mL/min; GFR Non-African American 92 mL/min; Glucose 116 mg/dL (74-106)
[2022-05-28] MEDS: AMIODARONE 450mg/250ml AE 250 ML IV SCH ×2 (09:26→21:58)
[2022-05-28] MEDS: SODIUM CHLORIDE 0.9% 1,000 ML IV SCH (09:27)
[2022-05-28] MEDS: hydrALAZINE HCL 20 MG/ML VL IV PRN (09:41)
[2022-05-28 11:01] VITALS: BP 137/65
[2022-05-28] MEDS ORDERED: KETOROLAC TROMETH 30 MG/ML 1ML VIAL IV ONE (11:15)
[2022-05-28] MEDS: ONDANSETRON HCL 4 MG/2 ML VIAL IV PRN ×2 (11:49→16:49)
[2022-05-28 12:01] VITALS: BP 128/77
[2022-05-28] MEDS ORDERED: POTASSIUM CHLORIDE 40 MEQ, LIDOCAINE 1% (LOCAL ANESTH.) 4 ML in SODIUM CHL 0.9% 250 ML IV ONE (16:15)
[2022-05-28] MEDS: KETOROLAC TROMETH 30 MG/ML 1ML VIAL IV PRN (16:49)
[2022-05-28 16:58] VITALS: BP 157/67
[2022-05-28 22:26] VITALS: BP 159/71
[2022-05-29] VITALS (10 sets, daily range): BP systolic 145–207; BP diastolic 59–97
[2022-05-29] MEDS: SODIUM CHLORIDE 0.9% 1,000 ML IV SCH ×4 (01:20→20:30)
[2022-05-29] MEDS: LABETALOL HCL 5 MG/ML 4ML SYRINGE IV PRN ×2 (01:42→13:07)
[2022-05-29] MEDS: KETOROLAC TROMETH 30 MG/ML 1ML VIAL IV PRN ×3 (01:52→18:46)
[2022-05-29] MEDS: MORPHINE SULFATE INJ 2 MG/ml SYRG IV PRN ×4 (03:33→19:59)
[2022-05-29 06:59] LABS: Basophils # (auto) 0 10 ^3/uL (0-0.2); Eosinophils # (auto) 0 10 ^3/uL (0-0.8); Hematocrit 41.5 % (36.0-46.0); Hemoglobin 13.7 g/dL (12.2-16.2); Lymphocytes # (auto) 0.7 10 ^3/uL (0.4-5.4); Lymphocytes % (auto) 10.2 % (10.0-50.0); Mean Corpuscular Hemoglobin 31.1 pg (28.0-32.0); Mean Corpuscular Hgb Conc. 32.9 g/dL (32.0-36.0); Mean Corpuscular Volume 94.4 fL (80.0-100.0); Monocytes # (auto) 0.7 10 ^3/uL (0-1.3); Neutrophils # (auto) 5.5 10 ^3/uL (1.6-8.6); Neutrophils % (auto) 79.8 % (37.0-80.0); Red Cell Distribution Width 14.5 % (11.8-14.3); White Blood Cell 6.9 10^3/uL (4.4-10.8)
[2022-05-29 07:16] LABS: INR 1.1 (0.9-1.15); Partial Thromboplastin Time 27.5 sec (24.6-33.4)
[2022-05-29 07:19] LABS: BUN/Creatinine Ratio 23.7; Calcium 8.1 mg/dL (8.5-10.1); Potassium 3.8 mmol/L (3.5-5.1)
[2022-05-29] MEDS: ONDANSETRON HCL 4 MG/2 ML VIAL IV PRN ×2 (08:19→13:08)
[2022-05-29] MEDS: hydrALAZINE HCL 20 MG/ML VL IV PRN ×2 (08:23→21:54)
[2022-05-29] MEDS ORDERED: VANCOMYCIN HCL 1000 MG VL ONE (14:14)
[2022-05-29] MEDS ORDERED: LIDOCAINE 2%HCL (LOCAL ANESTH.) INJ 20ML MDV ONE (14:15)
[2022-05-29] MEDS ORDERED: MIDAZOLAM HCL 2MG/2ML 2ml VIAL (1mg/ml) ONE (14:15)
[2022-05-29] MEDS ORDERED: fentaNYL CITRATE 100 MCG/2 ML VL ONE (14:15)
[2022-05-29] MEDS ORDERED: VANCOMYCIN 1GM/250ML 250 ML IV ONE (14:17)
[2022-05-29] MEDS ORDERED: VANCOMYCIN 1GM/250ML 250 ML IV SCH (16:00)
[2022-05-29] MEDS: AMIODARONE 450mg/250ml AE 250 ML IV SCH (17:38)
[2022-05-30] MEDS: MORPHINE SULFATE INJ 2 MG/ml SYRG IV PRN ×6 (00:27→18:31)
[2022-05-30] MEDS: SODIUM CHLORIDE 0.9% 1,000 ML IV SCH ×2 (01:16→10:40)
[2022-05-30] MEDS: hydrALAZINE HCL 20 MG/ML VL IV PRN ×2 (04:04→22:01)
[2022-05-30 05:00] VITALS: BP 149/90
[2022-05-30 05:17] LABS: Basophils # (auto) 0 10 ^3/uL (0-0.2); Basophils % (auto) 0.3 % (0.0-2.0); Eosinophils # (auto) 0 10 ^3/uL (0-0.8); Eosinophils % (auto) 0.1 % (0.0-7.0); Hematocrit 43.3 % (36.0-46.0); Hemoglobin 14.2 g/dL (12.2-16.2); Lymphocytes # (auto) 0.6 10 ^3/uL (0.4-5.4); Lymphocytes % (auto) 11.5 % (10.0-50.0); Mean Corpuscular Hemoglobin 31.1 pg (28.0-32.0); Mean Corpuscular Hgb Conc. 32.8 g/dL (32.0-36.0); Mean Corpuscular Volume 94.9 fL (80.0-100.0); Monocytes # (auto) 0.5 10 ^3/uL (0-1.3); Monocytes % (auto) 8.9 % (0.0-12.0); Neutrophils # (auto) 4.3 10 ^3/uL (1.6-8.6); Neutrophils % (auto) 79.2 % (37.0-80.0); Nucleated Red Blood Cells % 0.1 %; Red Blood Cells 4.56 10^6/uL (4.0-5.20); Red Cell Distribution Width 14.3 % (11.8-14.3); White Blood Cell 5.4 10^3/uL (4.4-10.8)
[2022-05-30 05:33] LABS: Potassium 3.4 mmol/L (3.5-5.1)
[2022-05-30 05:41] LABS: BUN/Creatinine Ratio 27.7; Calcium 8.1 mg/dL (8.5-10.1)
[2022-05-30] MEDS ORDERED: VANCOMYCIN 1GM/250ML 250 ML IV ONE (06:00)
[2022-05-30] MEDS: AMIODARONE 450mg/250ml AE 250 ML IV SCH ×2 (06:11→22:00)
[2022-05-30 09:41] VITALS: BP 168/86
[2022-05-30] MEDS: ONDANSETRON HCL 4 MG/2 ML VIAL IV PRN (11:01)
[2022-05-30 13:00] VITALS: BP 186/95
[2022-05-30] MEDS: KETOROLAC TROMETH 30 MG/ML 1ML VIAL IV PRN (14:31)
[2022-05-30] MEDS: LABETALOL HCL 5 MG/ML 4ML SYRINGE IV PRN (14:34)
[2022-05-30 16:07] VITALS: BP 153/77
[2022-05-30] MEDS: D5W 5% 1,000 ML IV SCH (16:25)
[2022-05-30] MEDS ORDERED: LORazepam 2MG/ML-1ML VIAL IV PRN (20:00)
[2022-05-30 22:00] VITALS: BP 153/68
[2022-05-30] MEDS: ATORVASTATIN 20 MG TAB PO SCH (22:00)
[2022-05-30] MEDS ORDERED: DONEPEZIL HYDROCHLORIDE 5 MG TAB PO SCH (22:00)
[2022-05-30] MEDS: MEMANTINE HCL 5 MG TAB PO SCH (22:00)
[2022-05-31] MEDS: MORPHINE SULFATE INJ 2 MG/ml SYRG IV PRN ×3 (00:21→16:40)
[2022-05-31] MEDS: D5W 5% 1,000 ML IV SCH (01:10)
[2022-05-31 05:00] VITALS: BP 140/78
[2022-05-31 06:08] LABS: Calcium 7.4 mg/dL (8.5-10.1)
[2022-05-31 06:09] LABS: Basophils # (auto) 0 10 ^3/uL (0-0.2); Basophils % (auto) 0.3 % (0.0-2.0); Eosinophils # (auto) 0 10 ^3/uL (0-0.8); Eosinophils % (auto) 0.4 % (0.0-7.0); Hematocrit 40.8 % (36.0-46.0); Hemoglobin 13.2 g/dL (12.2-16.2); Lymphocytes # (auto) 0.7 10 ^3/uL (0.4-5.4); Lymphocytes % (auto) 12.5 % (10.0-50.0); Mean Corpuscular Hemoglobin 30.8 pg (28.0-32.0); Mean Corpuscular Hgb Conc. 32.4 g/dL (32.0-36.0); Monocytes # (auto) 0.5 10 ^3/uL (0-1.3); Monocytes % (auto) 9.3 % (0.0-12.0); Neutrophils # (auto) 4.2 10 ^3/uL (1.6-8.6); Neutrophils % (auto) 77.5 % (37.0-80.0); Nucleated Red Blood Cells % 0.1 %; Red Blood Cells 4.29 10^6/uL (4.0-5.20); Red Cell Distribution Width 14.5 % (11.8-14.3); White Blood Cell 5.4 10^3/uL (4.4-10.8)
[2022-05-31 06:25] LABS: Potassium 2.8 mmol/L (3.5-5.1)
[2022-05-31] MEDS: hydrALAZINE HCL 20 MG/ML VL IV PRN (06:44)
[2022-05-31 09:00] VITALS: BP 160/81
[2022-05-31] MEDS: ASPirin 81 mg TAB PO SCH (10:00)
[2022-05-31] MEDS: MEMANTINE HCL 5 MG TAB PO SCH ×2 (10:00→22:00)
[2022-05-31] MEDS ORDERED: CLINIMIX PER PHARMACY 0 ML IV SCH (10:45)
[2022-05-31] MEDS: POTASSIUM CHL 20MEQ/100ML 100 ML IV SCH ×3 (11:15→20:38)
[2022-05-31] MEDS: AMIODARONE 450mg/250ml AE 250 ML IV SCH (12:13)
[2022-05-31 12:28] LABS: Magnesium 2.2 mg/dL (1.6-2.6); Phosphorus 1.5 mg/dL (2.5-4.90)
[2022-05-31 13:00] VITALS: BP 99/72
[2022-05-31] MEDS: ONDANSETRON HCL 4 MG/2 ML VIAL IV PRN (16:40)
[2022-05-31 17:00] VITALS: BP 141/81
[2022-05-31] MEDS ORDERED: SODIUM PHOSP 20MEQ(15MMOL) IN NS 100 ML IV ONE (20:00)
[2022-05-31] MEDS ORDERED: POTASSIUM CHL 20MEQ/100ML 100 ML IV SCH (20:30)
[2022-05-31] MEDS: AMINO ACID INFUSION IN D10W 1,000 ML IV NR (20:39)
[2022-05-31 22:00] VITALS: BP 155/76
[2022-05-31] MEDS: ATORVASTATIN 20 MG TAB PO SCH (22:00)
[2022-05-31] MEDS: DONEPEZIL HYDROCHLORIDE 5 MG TAB PO SCH (22:00)
[2022-06-01] MEDS ORDERED: DEXTROSE (50%) 50ML SYRG IV SCH
[2022-06-01] MEDS: ACCU-CHEK COMFORT CURVE STRIP VI SCH ×4 (00:20→18:00)
[2022-06-01] MEDS: MORPHINE SULFATE INJ 2 MG/ml SYRG IV PRN ×3 (00:23→17:57)
[2022-06-01 04:56] VITALS: BP 169/92
[2022-06-01] MEDS: InsuLIN REG 1unit/0.01ml Soln (100units/ml) SC SCH ×4 (05:36→18:00)
[2022-06-01] MEDS: AMIODARONE 450mg/250ml AE 250 ML IV SCH ×2 (05:40→21:15)
[2022-06-01 05:42] LABS: Basophils # (auto) 0 10 ^3/uL (0-0.2); Eosinophils # (auto) 0 10 ^3/uL (0-0.8); Eosinophils % (auto) 0.2 % (0.0-7.0); Hematocrit 41.5 % (36.0-46.0); Lymphocytes # (auto) 0.8 10 ^3/uL (0.4-5.4); Lymphocytes % (auto) 12.7 % (10.0-50.0); Mean Corpuscular Hemoglobin 31.5 pg (28.0-32.0); Mean Corpuscular Hgb Conc. 33.7 g/dL (32.0-36.0); Mean Corpuscular Volume 93.5 fL (80.0-100.0); Monocytes # (auto) 0.6 10 ^3/uL (0-1.3); Monocytes % (auto) 9.5 % (0.0-12.0); Neutrophils # (auto) 5.1 10 ^3/uL (1.6-8.6); Neutrophils % (auto) 77.6 % (37.0-80.0); Red Blood Cells 4.44 10^6/uL (4.0-5.20); Red Cell Distribution Width 14.4 % (11.8-14.3); White Blood Cell 6.5 10^3/uL (4.4-10.8)
[2022-06-01 06:00] LABS: Albumin 2.4 g/dL (3.4-5.0); BUN/Creatinine Ratio 24.7; Bilirubin, Total 0.6 mg/dL (0.2-1.0); Calcium 7.5 mg/dL (8.5-10.1); Magnesium 1.9 mg/dL (1.6-2.6); Phosphorus 2.8 mg/dL (2.5-4.90)
[2022-06-01] MEDS: LABETALOL HCL 5 MG/ML 4ML SYRINGE IV PRN (06:37)
[2022-06-01 09:00] VITALS: BP 148/79
[2022-06-01] MEDS: MEMANTINE HCL 5 MG TAB PO SCH ×2 (10:00→21:00)
[2022-06-01] MEDS: ASPirin 81 mg TAB PO SCH (10:00)
[2022-06-01 13:00] VITALS: BP 142/83
[2022-06-01] MEDS: POTASSIUM CHL 20MEQ/100ML 100 ML IV SCH ×2 (14:15→16:15)
[2022-06-01 17:00] VITALS: BP 173/79
[2022-06-01] MEDS ORDERED: POTASSIUM PHOSP 22MEQ(15MMOLE) in NS 100 ML IV ONE (18:30)
[2022-06-01] MEDS: AMINO ACID INFUSION IN D10W 1,000 ML IV NR ×2 (19:49→20:58)
[2022-06-01] MEDS: ATORVASTATIN 20 MG TAB PO SCH (21:00)
[2022-06-01] MEDS: DONEPEZIL HYDROCHLORIDE 5 MG TAB PO SCH (21:00)
[2022-06-01 21:31] VITALS: BP 149/77
[2022-06-01] MEDS ORDERED: AMIODARONE HCL 200 MG TAB PO SCH (22:00)
[2022-06-02] MEDS: ACCU-CHEK COMFORT CURVE STRIP VI SCH ×4 (00:54→18:00)
[2022-06-02] MEDS: MORPHINE SULFATE INJ 2 MG/ml SYRG IV PRN ×2 (02:19→06:46)
[2022-06-02 04:45] VITALS: BP 157/81
[2022-06-02] MEDS: InsuLIN REG 1unit/0.01ml Soln (100units/ml) SC SCH ×4 (05:40→18:00)
[2022-06-02] MEDS: hydrALAZINE HCL 20 MG/ML VL IV PRN (05:41)
[2022-06-02 06:25] VITALS: BP 125/63
[2022-06-02 06:27] LABS: Albumin 2.3 g/dL (3.4-5.0); Magnesium 2.4 mg/dL (1.6-2.6)
[2022-06-02 06:33] LABS: BUN/Creatinine Ratio 26.8; Bilirubin, Total 0.5 mg/dL (0.2-1.0)
[2022-06-02 06:43] LABS: Potassium 2.9 mmol/L (3.5-5.1)
[2022-06-02 09:08] VITALS: BP 128/62
[2022-06-02] MEDS ORDERED: POTASSIUM CHL 20MEQ/100ML 100 ML IV SCH ×2 (09:30→10:30)
[2022-06-02] MEDS: ASPirin 81 mg TAB PO SCH (10:00)
[2022-06-02] MEDS: MEMANTINE HCL 5 MG TAB PO SCH ×2 (10:00→22:00)
[2022-06-02] MEDS: AMIODARONE 450mg/250ml AE 250 ML IV SCH (11:45)
[2022-06-02 13:32] VITALS: BP 144/85
[2022-06-02] MEDS ORDERED: POTASSIUM PHOSP 22MEQ(15MMOLE) in NS 100 ML IV ONE ×3 (14:00→22:00)
[2022-06-02] MEDS ORDERED: POTASSIUM CHLORIDE 60 MEQ, LIDOCAINE 1% (LOCAL ANESTH.) 6 ML in SODIUM CHL 0.9% 500 ML IV ONE (14:00)
[2022-06-02 17:49] VITALS: BP 132/78
[2022-06-02] MEDS: AMINO ACID INFUSION IN D10W 1,000 ML IV NR (20:55)
[2022-06-02 22:00] VITALS: BP 134/70
[2022-06-02] MEDS: ATORVASTATIN 20 MG TAB PO SCH (22:00)
[2022-06-02] MEDS: DONEPEZIL HYDROCHLORIDE 5 MG TAB PO SCH (22:00)
[2022-06-03] MEDS: ACCU-CHEK COMFORT CURVE STRIP VI SCH ×4 (00:16→18:00)
[2022-06-03] MEDS: AMIODARONE 450mg/250ml AE 250 ML IV SCH ×2 (02:45→17:45)
[2022-06-03 05:00] VITALS: BP_SYST 158; BP_SYST 179; BP_DIAS 72; BP_DIAS 87
[2022-06-03] MEDS: hydrALAZINE HCL 20 MG/ML VL IV PRN (05:47)
[2022-06-03] MEDS: InsuLIN REG 1unit/0.01ml Soln (100units/ml) SC SCH ×4 (06:00→18:00)
[2022-06-03 07:58] LABS: Albumin 2.5 g/dL (3.4-5.0); BUN/Creatinine Ratio 28.8; Calcium 8.1 mg/dL (8.5-10.1); Magnesium 2.1 mg/dL (1.6-2.6); Phosphorus 2.8 mg/dL (2.5-4.90); Potassium 3.7 mmol/L (3.5-5.1)
[2022-06-03 09:17] VITALS: BP 120/73
[2022-06-03] MEDS ORDERED: LIDOCAINE VISCOUS 2% 15ML UD ONE (09:33)
[2022-06-03] MEDS ORDERED: MIDAZOLAM HCL 5 MG/ML-1ML VIAL ONE (09:33)
[2022-06-03] MEDS ORDERED: SODIUM CHLORIDE LOCK 10 ML ONE (09:33)
[2022-06-03] MEDS ORDERED: diphenhdrAMINE HCL 50 MG/1 ML VL ONE (09:34)
[2022-06-03] MEDS: MEMANTINE HCL 5 MG TAB PO SCH ×2 (10:00→22:00)
[2022-06-03] MEDS: ASPirin 81 mg TAB PO SCH (10:00)
[2022-06-03 15:30] VITALS: BP 125/79
[2022-06-03] MEDS: AMINO ACID INFUSION IN D10W 1,000 ML IV NR ×2 (15:30→23:17)
[2022-06-03] MEDS: fentaNYL CITRATE 100 MCG/2 ML VL ONE ×2 (17:04→17:09)
[2022-06-03] MEDS ORDERED: METOCLOPRAMIDE HCL 5MG/ml INJ 2ml VIAL IV ONE (17:45)
[2022-06-03 22:00] VITALS: BP 141/73
[2022-06-03] MEDS: DONEPEZIL HYDROCHLORIDE 5 MG TAB PO SCH (22:00)
[2022-06-03] MEDS: ATORVASTATIN 20 MG TAB PO SCH (22:00)
[2022-06-03] MEDS: SUCRALFATE 1 GM/10 ML ORAL SUSP PO SCH (22:06)
[2022-06-04] MEDS: ACCU-CHEK COMFORT CURVE STRIP VI SCH ×4 (00:20→18:36)
[2022-06-04 05:00] VITALS: BP 159/85
[2022-06-04] MEDS: InsuLIN REG 1unit/0.01ml Soln (100units/ml) SC SCH ×4 (05:37→18:00)
[2022-06-04] MEDS: SUCRALFATE 1 GM/10 ML ORAL SUSP PO SCH ×4 (05:37→19:46)
[2022-06-04 06:37] LABS: Basophils # (auto) 0 10 ^3/uL (0-0.2); Basophils % (auto) 0.2 % (0.0-2.0); Eosinophils # (auto) 0 10 ^3/uL (0-0.8); Eosinophils % (auto) 0.3 % (0.0-7.0); Hematocrit 43.7 % (36.0-46.0); Hemoglobin 14.8 g/dL (12.2-16.2); Mean Corpuscular Hemoglobin 31.6 pg (28.0-32.0); Mean Corpuscular Hgb Conc. 33.8 g/dL (32.0-36.0); Mean Corpuscular Volume 93.5 fL (80.0-100.0); Monocytes # (auto) 0.6 10 ^3/uL (0-1.3); Monocytes % (auto) 6.6 % (0.0-12.0); Neutrophils # (auto) 8.1 10 ^3/uL (1.6-8.6); Neutrophils % (auto) 82.9 % (37.0-80.0); Nucleated Red Blood Cells % 0.1 %; Red Blood Cells 4.68 10^6/uL (4.0-5.20); Red Cell Distribution Width 14.3 % (11.8-14.3)
[2022-06-04 07:09] LABS: White Blood Cell 9.7 10^3/uL (4.4-10.8)
[2022-06-04 09:00] VITALS: BP 132/71
[2022-06-04] MEDS: MEMANTINE HCL 5 MG TAB PO SCH ×2 (10:28→19:46)
[2022-06-04] MEDS: ceFAZolin 2 GM in D5W 5% 100 ML IV SCH ×3 (10:28→22:07)
[2022-06-04] MEDS: ASPirin 81 mg TAB PO SCH (10:29)
[2022-06-04 11:10] LABS: Sodium 137 mmol/L (136-145)
[2022-06-04 11:11] LABS: Alanine Aminotransferase 22 U/L (13-56); Albumin 2.2 g/dL (3.4-5.0); Alkaline Phosphatase 100 U/L (45-117); Anion Gap 9 (5-15); Aspartate Aminotransferase 33 U/L (15-37); BUN/Creatinine Ratio 29.9; Bilirubin, Total 0.6 mg/dL (0.2-1.0); Blood Urea Nitrogen 23 mg/dL (7-18); Calcium 7.6 mg/dL (8.5-10.1); Carbon Dioxide 28 mmol/L (21-32); Chloride 100 mmol/L (98-107); GFR African American 91 mL/min; GFR Non-African American 76 mL/min; Glucose 106 mg/dL (74-106); Magnesium 1.9 mg/dL (1.6-2.6); Phosphorus 3.1 mg/dL (2.5-4.90); Total Protein 6.2 g/dL (6.4-8.2)
[2022-06-04 12:35] VITALS: BP 157/89
[2022-06-04] MEDS ORDERED: METOCLOPRAMIDE HCL 5MG/ml INJ 2ml VIAL IV ONE (12:45)
[2022-06-04] MEDS: hydrALAZINE HCL 20 MG/ML VL IV PRN (13:09)
[2022-06-04] MEDS ORDERED: FLEET MINERAL OIL ENEMA 133 ML PR ONE (14:45)
[2022-06-04 16:59] VITALS: BP 154/70
[2022-06-04] MEDS: POTASSIUM CHL 20MEQ/100ML 100 ML IV SCH ×3 (17:24→22:07)
[2022-06-04] MEDS: AMINO ACID INFUSION IN D10W 1,000 ML IV NR (19:44)
[2022-06-04] MEDS: ATORVASTATIN 20 MG TAB PO SCH (19:45)
[2022-06-04] MEDS: DONEPEZIL HYDROCHLORIDE 5 MG TAB PO SCH (19:45)
[2022-06-04] MEDS: AMIODARONE HCL 200 MG TAB PO SCH (19:46)
[2022-06-04 22:00] VITALS: BP 137/69
[2022-06-05] MEDS: ACCU-CHEK COMFORT CURVE STRIP VI SCH ×4 (01:17→16:46)
[2022-06-05] MEDS: InsuLIN REG 1unit/0.01ml Soln (100units/ml) SC SCH ×4 (01:18→17:35)
[2022-06-05 05:05] VITALS: BP 149/84
[2022-06-05] MEDS: ceFAZolin 2 GM in D5W 5% 100 ML IV SCH ×3 (06:13→22:51)
[2022-06-05] MEDS: SUCRALFATE 1 GM/10 ML ORAL SUSP PO SCH ×4 (06:23→21:10)
[2022-06-05 07:25] LABS: Potassium 3.3 mmol/L (3.5-5.1)
[2022-06-05 07:30] LABS: Albumin 2.1 g/dL (3.4-5.0); BUN/Creatinine Ratio 26.5; Bilirubin, Total 0.9 mg/dL (0.2-1.0); Calcium 7.2 mg/dL (8.5-10.1); Magnesium 1.8 mg/dL (1.6-2.6); Phosphorus 1.3 mg/dL (2.5-4.90); Total Protein 5.3 g/dL (6.4-8.2)
[2022-06-05] MEDS ORDERED: VANCOMYCIN PER PHARMACY 0 MG IV SCH (08:00)
[2022-06-05 09:00] VITALS: BP 136/71
[2022-06-05] MEDS: VANCOMYCIN 1GM/250ML 250 ML IV SCH (09:41)
[2022-06-05] MEDS: ASPirin 81 mg TAB PO SCH (09:42)
[2022-06-05] MEDS: AMIODARONE HCL 200 MG TAB PO SCH ×2 (09:42→21:11)
[2022-06-05] MEDS: MEMANTINE HCL 5 MG TAB PO SCH ×2 (09:42→21:11)
[2022-06-05] MEDS ORDERED: POTASSIUM PHOSPHATE 44 MEQ in D5W 5% 250 ML IV ONE (10:30)
[2022-06-05 12:56] VITALS: BP 112/75
[2022-06-05] MEDS ORDERED: VANCOMYCIN 1GM/250ML 250 ML IV SCH (14:00)
[2022-06-05 16:40] VITALS: BP 151/81
[2022-06-05] MEDS: AMINO ACID INFUSION IN D10W 1,000 ML IV NR (16:47)
[2022-06-05] MEDS: DONEPEZIL HYDROCHLORIDE 5 MG TAB PO SCH (21:10)
[2022-06-05] MEDS: ATORVASTATIN 20 MG TAB PO SCH (21:11)
[2022-06-05 22:00] VITALS: BP 105/56
[2022-06-06] MEDS: ACCU-CHEK COMFORT CURVE STRIP VI SCH ×3 (01:19→12:47)
[2022-06-06 05:00] VITALS: BP 150/79
[2022-06-06] MEDS: InsuLIN REG 1unit/0.01ml Soln (100units/ml) SC SCH ×3 (05:09→12:00)
[2022-06-06] MEDS: SUCRALFATE 1 GM/10 ML ORAL SUSP PO SCH ×2 (06:03→11:30)
[2022-06-06] MEDS: ceFAZolin 2 GM in D5W 5% 100 ML IV SCH ×2 (06:03→14:00)
[2022-06-06 07:21] LABS: Hematocrit 40.3 % (36.0-46.0); Hemoglobin 13.3 g/dL (12.2-16.2); Mean Corpuscular Hemoglobin 30.8 pg (28.0-32.0); Mean Corpuscular Volume 93.3 fL (80.0-100.0); Red Blood Cells 4.32 10^6/uL (4.0-5.20); Red Cell Distribution Width 14.4 % (11.8-14.3); White Blood Cell 15.1 10^3/uL (4.4-10.8)
[2022-06-06 07:33] LABS: Basophils % (manual) 0 (0.0-2.0); Blast Cells 0; Eosinophils % (manual) 0 (0-7); Metamyelocytes % 0; Myelocytes % 0; Promyelocytes % 0; Reactive Lymphocytes 0
[2022-06-06 07:43] LABS: Albumin 1.9 g/dL (3.4-5.0); Magnesium 1.5 mg/dL (1.6-2.6); Phosphorus 1.4 mg/dL (2.5-4.90); Potassium 3.1 mmol/L (3.5-5.1)
[2022-06-06 07:46] LABS: Bilirubin, Total 0.4 mg/dL (0.2-1.0); Total Protein 5.6 g/dL (6.4-8.2)
[2022-06-06] MEDS: AMIODARONE HCL 200 MG TAB PO SCH ×3 (07:57→09:40)
[2022-06-06 08:54] LABS: Band Neutrophils % (manual) 3; Lymphocytes % (manual) 7 (10.0-50.0); Monocytes % (manual) 1 (0-12)
[2022-06-06 09:00] VITALS: BP 139/72
[2022-06-06] MEDS: MEMANTINE HCL 5 MG TAB PO SCH (09:40)
[2022-06-06] MEDS: ASPirin 81 mg TAB PO SCH (09:40)
[2022-06-06] MEDS: VANCOMYCIN 1GM/250ML 250 ML IV SCH (09:51)
[2022-06-06] MEDS ORDERED: AMIODARONE HCL 150 MG in D5W 5% 100 ML IV ONE (10:15)
[2022-06-06] MEDS: ONDANSETRON HCL 4 MG/2 ML VIAL IV PRN (10:17)
[2022-06-06] MEDS ORDERED: AMIODARONE 450mg/250ml AE 250 ML IV SCH ×2 (10:30→16:30)
[2022-06-06] MEDS ORDERED: POTASSIUM PHOSPHATE 44 MEQ in D5W 5% 250 ML IV ONE (12:00)
[2022-06-06] MEDS: MORPHINE SULFATE INJ 2 MG/ml SYRG IV PRN (12:48)
[2022-06-06 13:00] VITALS: BP 113/81
[2022-06-06] MEDS ORDERED: LIDOCAINE 1%-Mpf/Epinephrine 1:200,000 ONE (13:42)
[2022-06-06] MEDS ORDERED: fentaNYL CITRATE 100 MCG/2 ML VL ONE (14:01)
[2022-06-06] MEDS ORDERED: MIDAZOLAM HCL 2MG/2ML 2ml VIAL (1mg/ml) ONE (14:01)
[2022-06-06 16:40] VITALS: BP 147/70
== END 2022-06-06 17:50 | disposition left against medical advice (07) | DRG 226 ==
LOC: EDBD 17:06 → ER 17:11 → OVERFLOW 05-25 13:50 → WEST WING 05-25 23:33 → OVERFLOW 05-26 04:10 → TELE-EAST 05-26 12:11 → TELE-WESTW 05-26 20:38
PROVIDERS: ADMIT Internal Medicine; ATTEND Internal Medicine Pulmonary Disease
PROC: 0RBU0ZZ Excision of Right Metacarpophalangeal Joint, Open Approach (ICD-10-PCS; 2022-05-25)
PROC: 02PA3MZ Removal of Cardiac Lead from Heart, Percutaneous Approach (ICD-10-PCS; principal; 2022-05-29)
PROC: 0JH608Z Insertion of Defibrillator Generator into Chest Subcutaneous Tissue and Fascia, Open Approach (ICD-10-PCS; 2022-05-29)
PROC: 02H63KZ Insertion of Defibrillator Lead into Right Atrium, Percutaneous Approach (ICD-10-PCS; 2022-05-29)
PROC: 0JPT0PZ Removal of Cardiac Rhythm Related Device from Trunk Subcutaneous Tissue and Fascia, Open Approach (ICD-10-PCS; 2022-05-29)
PROC: 02HK3KZ Insertion of Defibrillator Lead into Right Ventricle, Percutaneous Approach (ICD-10-PCS; 2022-05-29)
PROC: 0DB98ZX Excision of Duodenum, Via Natural or Artificial Opening Endoscopic, Diagnostic (ICD-10-PCS; 2022-06-03)
PROC: 0DB78ZX Excision of Stomach, Pylorus, Via Natural or Artificial Opening Endoscopic, Diagnostic (ICD-10-PCS; 2022-06-03)
PROC: 0DB58ZX Excision of Esophagus, Via Natural or Artificial Opening Endoscopic, Diagnostic (ICD-10-PCS; 2022-06-03)
DX: I47.2 Ventricular tachycardia (principal); I50.23 Acute on chronic systolic (congestive) heart failure; N17.0 Acute kidney failure with tubular necrosis; K56.600 Partial intestinal obstruction, unspecified as to cause; I42.0 Dilated cardiomyopathy; N17.9 Acute kidney failure, unspecified; K22.10 Ulcer of esophagus without bleeding; L03.113 Cellulitis of right upper limb; E87.0 Hyperosmolality and hypernatremia; M86.9 Osteomyelitis, unspecified; N39.0 Urinary tract infection, site not specified; K56.7 Ileus, unspecified; I25.10 Atherosclerotic heart disease of native coronary artery without angina pectoris; I48.91 Unspecified atrial fibrillation; I16.0 Hypertensive urgency; I44.7 Left bundle-branch block, unspecified; K29.70 Gastritis, unspecified, without bleeding; K29.80 Duodenitis without bleeding; K29.90 Gastroduodenitis, unspecified, without bleeding; K31.3 Pylorospasm, not elsewhere classified; G30.9 Alzheimer's disease, unspecified; F02.80 Dementia in other diseases classified elsewhere, unspecified severity, without behavioral disturbance, psychotic disturbance, mood disturbance, and anxiety; E78.5 Hyperlipidemia, unspecified; E86.0 Dehydration; E86.1 Hypovolemia; E87.6 Hypokalemia; F17.200 Nicotine dependence, unspecified, uncomplicated; I67.2 Cerebral atherosclerosis; I80.9 Phlebitis and thrombophlebitis of unspecified site; K21.9 Gastro-esophageal reflux disease without esophagitis; K25.9 Gastric ulcer, unspecified as acute or chronic, without hemorrhage or perforation; K31.89 Other diseases of stomach and duodenum; K44.9 Diaphragmatic hernia without obstruction or gangrene; Z20.822 Contact with and (suspected) exposure to COVID-19; E11.69 Type 2 diabetes mellitus with other specified complication; Z90.49 Acquired absence of other specified parts of digestive tract; Z79.02 Long term (current) use of antithrombotics/antiplatelets; Z85.3 Personal history of malignant neoplasm of breast; Z79.899 Other long term (current) drug therapy; Z83.3 Family history of diabetes mellitus; Z90.12 Acquired absence of left breast and nipple; Z90.2 Acquired absence of lung [part of]; Z82.49 Family history of ischemic heart disease and other diseases of the circulatory system; Z90.81 Acquired absence of spleen; Z85.118 Personal history of other malignant neoplasm of bronchus and lung; Z79.82 Long term (current) use of aspirin; Z86.73 Personal history of transient ischemic attack (TIA), and cerebral infarction without residual deficits; I25.2 Old myocardial infarction; Z95.810 Presence of automatic (implantable) cardiac defibrillator; Z90.710 Acquired absence of both cervix and uterus; Z91.19 Patient's noncompliance with other medical treatment and regimen
CPT/HCPCS: 33241; 36415; 43239; 70450; 71045; 73200; 74018; 74177; 74250; 80048; 80053; 80061; 80069; 81001; 82962; 83036; 83735; 83880; 84100; 84443; 84484; 85007; 85025; 85027; 85610; 85730; 86850; 86900; 86901; 87070; 87075; 87205; 93005; 93306; 93886; 96374; 96375; 99152; G0378; J0690; J1885; J2001; J2250; J2405; J3480; J3490; J7060